=== PATIENT | male | born 1985 | race Caucasian/White ===

== ENCOUNTER 2020-10-28 11:22 | Emergency (ER) | payer BC ==
[2020-10-28] MEDS ORDERED: MORPHINE SULFATE 2 MG INJ IV ONE (11:37)
[2020-10-28] MEDS ORDERED: Sodium Chloride 0.9% 1000 ML 1,000 ML IV STA (11:37)
[2020-10-28] MEDS ORDERED: BABY ASPIRIN 81 MG CHEW PO ONE (11:37)
[2020-10-28] MEDS ORDERED: BABY ASPIRIN 81 MG CHEW ONE (11:48)
[2020-10-28] MEDS ORDERED: MORPHINE SULFATE 2 MG INJ ONE (11:48)
[2020-10-28] MEDS ORDERED: Sodium Chloride 0.9% 1000 ML 1,000 ML ONE (11:49)
[2020-10-28 12:01] LABS: Absolute Neutrophil Ct (ANC) 2.94 (1.4-6.9); BASOPHIL % 0.7 % (0.0-0.4); Basophil (Absolute #) 0.04 (0-0.4); Eosinophil % 1.3 % (0.00-5.0); Eosinophil (Absolute #) 0.07 (0-0.5); Hematocrit 43.1 % (42-50); Hemoglobin 14.7 gm/dl (12.5-18.0); Lymphocyte (Absolute #) 2.02 (1.0-4.6); Lymphocytes % 37.8 % (24.0-44.0); Mean Cell Volume 89.4 fl (78-100); Mean Corpuscular Hemoglobin 30.5 pg (26-32); Mean Corpuscular Hgb Concent. 34.1 g/dl (32-36); Mean Platelet Volume 10.1 fl (7.5-11.0); Monocyte (Absolute #) 0.28 (0.0-1.3); Monocytes % 5.2 % (0.0-12.0); Platelet Count 230 K/mm3 (150-450); Red Blood Count 4.82 M/mm3 (4.1-5.6); Red Cell Distribution Width 12.1 % (11.5-14.0); White Blood Count 5.4 K/mm3 (4.0-10.5)
--- NOTE | 2020-10-28 12:22 | XRAY ---
Indication: Left arm pain. High blood pressure. Comparison: None Portable apical lordotic chest demonstrates normal heart, lungs, and bony thorax.
[2020-10-28 12:26] LABS: ALBUMIN 4.2 g/dL (3.5-5.0); ALKALINE PHOSPHATASE 47 U/L (38-126); AMYLASE 65 U/L (30-110); ANION GAP 12.4 MEQ/L (5-15); BLOOD UREA NITROGEN 15 mg/dL (9-20); CHLORIDE 101 mmol/L (98-107); CK-Creatinine Phosphokinase 81 U/L (55-170); Calcium 9.6 mg/dL (8.4-10.2); Carbon Dioxide 29 mmol/L (22-30); Creatinine 1 1.07 mg/dL (0.66-1.25); EST GLOMERULAR FILTRATION RATE > 60.0 ML/MIN; Glucose 96 mg/dL (74-106); LIPASE 234 U/L (23-300); NT PRO BNP 37.5 pg/mL (0-450); Potassium 4.6 mmol/L (3.5-5.1); SGOT/AST 25 U/L (17-59); SGPT/ALT 20 U/L (0-50); SODIUM 138 mmol/L (137-145); Total Protein 6.9 g/dL (6.3-8.2)
[2020-10-28 12:33] LABS: INR 0.92 (0.8-3.0); PROTIME 10.8 SECONDS (9.4-12.5)
[2020-10-28 12:41] LABS: D-DIMER QUANTITATIVE < 215 ng/mL (215-500)
[2020-10-28 13:02] LABS: Erythrocyte Sedimentation Rate 6 mm/hr (0-15)
--- NOTE | 2020-10-28 14:44 | ERPHSYRPT ---
- History of Present Illness Time Seen by Provider: 10/28/20 11:35 Historian: patient Exam Limitations: no limitations Patient Subjective Stated Complaint: pain/numbness in the left arm, back shoulder, and states that it feels like it is moving to his left chest Triage Nursing Assessment: Pt was brought to the ER by a work colleague, hypertensive, rates pain as 6-7/10, pulses normal, sinus rhythm, dizziness, pain began last night, denies N&V, denies being diaphoretic, doesn't appear to be in any distress Physician History: Patient is a 34-year-old male who presents with a complaint of left-sided chest pain. It started last p.m. with some numbness and pain in the left arm starting from the posterior aspect of the left shoulder down to the fingers. The back pain then radiates to the chest and noticed started 1 hour prior to arrival. 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 Did note that he has some dizziness and his initial blood pressure was 150/110. At bedrest here in the ER it eventually moved to 148/99. Patient has no cardiac risk factors. Timing/Duration: yesterday Activities at Onset: none Quality: pressure Location: shoulder, back Chest Pain Radiation: back Severity of Pain-Max: severe Severity of Pain-Current: moderate Modifying Factors: Improves With: nothing Associated Symptoms: denies symptoms Prior Chest Pain/Cardiac Workup: no prior chest pain, no prior cardiac workup Nitro Today/Relief: no nitro taken today Aspirin Treatment Today: 325 mg x 1, provided by ED Allergies/Adverse Reactions: No Known Drug Allergies Allergy (Verified 10/28/20 11:32) Travel Risk - International Travel Have you traveled outside of the country in past 3 weeks: No - Coronavirus Screening Are you exhibiting any of the following symptoms?: No Close contact with a COVID-19 positive Pt in past 14-21 Days: No - Vaccine Status Have you recieved a Covid-19 vaccination: No - Review of Systems Constitutional: No Fever, No Chills Eyes: No Symptoms Ears, Nose, & Throat: No Symptoms Respiratory: No Cough, No Dyspnea Cardiac: Chest Pain, No Edema, No Syncope Abdominal/Gastrointestinal: No Abdominal Pain, No Nausea, No Vomiting, No Diarrhea Genitourinary Symptoms: No Dysuria Musculoskeletal: Joint Pain, No Back Pain, No Neck Pain Skin: No Rash Neurological: No Dizziness, No Focal Weakness, No Sensory Changes Psychological: No Symptoms Endocrine: No Symptoms All Other Systems: Reviewed and Negative - Past Medical History Pertinent Past Medical History: No - Past Surgical History Past Surgical History: Yes Genitourinary: Kidney Surgery - Social History Smoking Status: Never smoker Exposure to second hand smoke: Yes Drug Use: none Patient Lives Alone: No - Nursing Vital Signs Nursing Vital Signs: Initial Vital Signs Temperature 96.8 F 10/28/20 11:23 Pulse Rate 92 H 10/28/20 11:23 Respiratory Rate 23 10/28/20 11:23 Blood Pressure 170/103 10/28/20 11:23 O2 Sat by Pulse Oximetry 99 10/28/20 11:23 Pain Scale Pain Intensity 5 - Physical Exam General Appearance: mild distress, alert Eye Exam: PERRL/EOMI, eyes nml inspection Ears, Nose, Throat Exam: normal ENT inspection, moist mucous membranes Neck Exam: normal inspection, non-tender, supple, full range of motion Respiratory Exam: normal breath sounds, lungs clear, No respiratory distress Cardiovascular Exam: regular rate/rhythm, normal heart sounds Gastrointestinal/Abdomen Exam: soft, No tenderness, No mass Back Exam: normal inspection, No CVA tenderness, No vertebral tenderness Extremity Exam: normal inspection, normal range of motion Neurologic Exam: alert, oriented x 3, cooperative, normal mood/affect, sensation nml, No motor deficits Skin Exam: normal color, warm, dry SpO2: 99 - Course Nursing assessment & vital signs reviewed: Yes EKG Interpreted by Me: RATE (81), NORMAL AXIS, NORMAL INTERVALS, NORMAL QRS, NORMAL ST-T - Radiology Exams Chest X-ray Interpretation: Negative Ordered Tests: Active Orders 24 hr Category Date Time Status EKG-ER Only STAT Care 10/28/20 11:37 Active IV Insertion STAT Care 10/28/20 11:37 Active CHEST 1 VIEW (PORTABLE) Stat Exams 10/28/20 11:39 Completed AMYLASE Stat Lab 10/28/20 11:55 Completed CBC W DIFF Stat Lab 10/28/20 11:55 Completed CK-Creatinine Phosphokinase Stat Lab 10/28/20 11:55 Completed CMP Stat Lab 10/28/20 11:55 Completed D-DIMER QUANTITATIVE Stat Lab 10/28/20 11:55 Completed Erythrocyte Sedimentation Rate Stat Lab 10/28/20 11:55 Completed LIPASE Stat Lab 10/28/20 11:55 Completed Lactic Acid Stat Lab 10/28/20 11:37 Completed NT PRO BNP Stat Lab 10/28/20 11:55 Completed PROTIME WITH INR Stat Lab 10/28/20 11:55 Completed TROPONIN Q3H Lab 10/28/20 11:55 Completed TROPONIN Q3H Lab 10/28/20 14:05 Completed TROPONIN Q3H Lab 10/28/20 17:45 Ordered TROPONIN Q3H Lab 10/28/20 20:45 Ordered TROPONIN Q3H Lab 10/28/20 23:45 Ordered UA W/RFX UR CULTURE Stat Lab 10/28/20 14:12 Ordered Medication Summary Discontinued Medications Generic Name Dose Route Start Last Admin Trade Name Freq PRN Reason Stop Dose Admin Aspirin 324 mg 10/28/20 11:37 10/28/20 11:51 Baby Aspirin 81 Mg Chew PO 10/28/20 11:38 324 mg STAT ONE Administration Aspirin Confirm 10/28/20 11:48 Baby Aspirin 81 Mg Chew Administered 10/28/20 11:49 Dose 324 mg .ROUTE .STK-MED ONE Sodium Chloride 1,000 mls @ 999 mls/hr 10/28/20 11:37 10/28/20 13:05 Sodium Chloride 0.9% 1000 Ml IV 10/28/20 12:37 Infused .Q1H1M STA Infusion Sodium Chloride Confirm 10/28/20 11:49 Sodium Chloride 0.9% 1000 Ml Administered 10/28/20 11:50 Dose 1,000 mls @ ud .ROUTE .STK-MED ONE Morphine Sulfate 2 mg 10/28/20 11:37 10/28/20 11:52 Morphine Sulfate 2 Mg Inj IV 10/28/20 11:38 2 mg STAT ONE Administration Morphine Sulfate Confirm 10/28/20 11:48 Morphine Sulfate 2 Mg Inj Administered 10/28/20 11:49 Dose 2 mg .ROUTE .STK-MED ONE Lab/Rad Data: Laboratory Result Diagrams 10/28/20 11:55 10/28/20 11:55 Laboratory Results 10/28/20 10/28/20 10/28/20 Range/Units 14:05 11:55 11:55 WBC (4.0-10.5) K/mm3 RBC (4.1-5.6) M/mm3 Hgb (12.5-18.0) gm/dl Hct (42-50) % MCV (78-100) fl MCH (26-32) pg MCHC (32-36) g/dl RDW (11.5-14.0) % Plt Count (150-450) K/mm3 MPV (7.5-11.0) fl Gran % (36.0-66.0) % Eos # (Auto) (0-0.5) Absolute Lymphs (auto) (1.0-4.6) Absolute Monos (auto) (0.0-1.3) Lymphocytes % (24.0-44.0) % Monocytes % (0.0-12.0) % Eosinophils % (0.00-5.0) % Basophils % (0.0-0.4) % Absolute Granulocytes (1.4-6.9) Basophils # (0-0.4) ESR (0-15) mm/hr PT 10.8 (9.4-12.5) SECONDS INR 0.92 (0.8-3.0) D-Dimer < 215 L (215-500) ng/mL Sodium (137-145) mmol/L Potassium (3.5-5.1) mmol/L Chloride (98-107) mmol/L Carbon Dioxide (22-30) mmol/L Anion Gap (5-15) MEQ/L BUN (9-20) mg/dL Creatinine (0.66-1.25) mg/dL Estimated GFR ML/MIN Glucose (74-106) mg/dL Lactic Acid (0.4-2.0) Calcium (8.4-10.2) mg/dL Total Bilirubin (0.2-1.3) mg/dL AST (17-59) U/L ALT (0-50) U/L Alkaline Phosphatase (38-126) U/L Creatine Kinase (55-170) U/L Troponin I < 0.012 < 0.012 (0.000-0.034) ng/mL NT-Pro-B Natriuret Pep (0-450) pg/mL Serum Total Protein (6.3-8.2) g/dL Albumin (3.5-5.0) g/dL Amylase (30-110) U/L Lipase (23-300) U/L 10/28/20 10/28/20 10/28/20 Range/Units 11:55 11:55 11:37 WBC 5.4 (4.0-10.5) K/mm3 RBC 4.82 (4.1-5.6) M/mm3 Hgb 14.7 (12.5-18.0) gm/dl Hct 43.1 (42-50) % MCV 89.4 (78-100) fl MCH 30.5 (26-32) pg MCHC 34.1 (32-36) g/dl RDW 12.1 (11.5-14.0) % Plt Count 230 (150-450) K/mm3 MPV 10.1 (7.5-11.0) fl Gran % 55.0 (36.0-66.0) % Eos # (Auto) 0.07 (0-0.5) Absolute Lymphs (auto) 2.02 (1.0-4.6) Absolute Monos (auto) 0.28 (0.0-1.3) Lymphocytes % 37.8 (24.0-44.0) % Monocytes % 5.2 (0.0-12.0) % Eosinophils % 1.3 (0.00-5.0) % Basophils % 0.7 (0.0-0.4) % Absolute Granulocytes 2.94 (1.4-6.9) Basophils # 0.04 (0-0.4) ESR 6 (0-15) mm/hr PT (9.4-12.5) SECONDS INR (0.8-3.0) D-Dimer (215-500) ng/mL Sodium 138 (137-145) mmol/L Potassium 4.6 (3.5-5.1) mmol/L Chloride 101 (98-107) mmol/L Carbon Dioxide 29 (22-30) mmol/L Anion Gap 12.4 (5-15) MEQ/L BUN 15 (9-20) mg/dL Creatinine 1.07 (0.66-1.25) mg/dL Estimated GFR > 60.0 ML/MIN Glucose 96 (74-106) mg/dL Lactic Acid 1.9 (0.4-2.0) Calcium 9.6 (8.4-10.2) mg/dL Total Bilirubin 1.10 (0.2-1.3) mg/dL AST 25 (17-59) U/L ALT 20 (0-50) U/L Alkaline Phosphatase 47 (38-126) U/L Creatine Kinase 81 (55-170) U/L Troponin I (0.000-0.034) ng/mL NT-Pro-B Natriuret Pep 37.5 (0-450) pg/mL Serum Total Protein 6.9 (6.3-8.2) g/dL Albumin 4.2 (3.5-5.0) g/dL Amylase 65 (30-110) U/L Lipase 234 (23-300) U/L - Progress Progress: improved Air Movement: good Blood Culture(s) Obtained: No Antibiotics given: No - Departure Departure Disposition: Home Clinical Impression: Subscapular bursitis Condition: Stable Critical Care Time: No Referrals: DOCTOR,NO FAMILY [Primary Care Provider] - Instructions: Shoulder Bursitis (DC) Prescriptions: Methylprednisolone Packet [Medrol Dosepack] 4 mg PO UD #1 packet Diclofenac Sodium 50 mg [Voltaren 50 mg] 50 mg PO TID 7 Days #21 tablet.ec
[2020-10-28 15:41] VITALS: BP 135/98; PULSE 74; O2SAT 98
== END 2020-10-28 15:40 | disposition home or self-care (01) ==
LOC: ED 11:22
DX: M17.9 Osteoarthritis of knee, unspecified (principal)
CPT/HCPCS: 36000; 36415; 71045; 80053; 82150; 82550; 83605; 83690; 83880; 84484; 85025; 85379; 85610; 85652; 93005; 96360; 96374; 99284; J2270; A9270-GY

== ENCOUNTER 2022-06-29 10:15 | Emergency (ER) | payer OTHER, BC ==
--- NOTE | 2022-06-29 10:19 | ERPHSYRPT ---
- History of Present Illness Time Seen by Provider: 06/29/22 10:19 Source: patient Exam Limitations: no limitations Physician History: This is a 36-year-old white male patient has a history of hypertension and takes hydrochlorothiazide and lisinopril and presents with 2-day history of intermittent dizziness and pain behind his right eye. Patient did not suffer any new trauma. He has not had any flulike symptoms. He has no visual changes. He has not had any fevers. Patient denies chest pain. He denies shortness of breath. He has no abdominal pain. He states he is never had anything like this in the past. He is not on any new medications in the denies illicit drug use Timing/Duration: day(s) (2) Severity: mild Character of Deficits: none Deficits: no difficulties Baseline/Normal Cognition: alert oriented x 3 Current Cognition: alert oriented x 3 Baseline Gait: walks w/o assistance Associated Symptoms: denies symptoms, No loss of consciousness, No vision changes, No chest pain Allergies/Adverse Reactions: No Known Drug Allergies Allergy (Verified 06/29/22 10:41) Home Medications: Lisinopril/Hydrochlorothiazide [Lisinopril-Hctz 10-12.5 mg Tab] 1 each PO DAILY 06/29/22 [History] Travel Risk - International Travel Have you traveled outside of the country in past 3 weeks: No - Coronavirus Screening Are you exhibiting any of the following symptoms?: No Close contact with a COVID-19 positive Pt in past 14-21 Days: No - Vaccine Status Have you recieved a Covid-19 vaccination: No - Review of Systems Constitutional: No Symptoms Eyes: Eye Pain (Pain behind the right eye) Ears, Nose, & Throat: No Symptoms Respiratory: No Symptoms Cardiac: No Symptoms Abdominal/Gastrointestinal: No Symptoms Genitourinary Symptoms: No Symptoms Musculoskeletal: No Symptoms Neurological: Dizziness, Headache Psychological: No Symptoms Endocrine: No Symptoms Hematologic/Lymphatic: No Symptoms Immunological/Allergic: No Symptoms All Other Systems: Reviewed and Negative - Past Medical History Pertinent Past Medical History: No - Past Surgical History Past Surgical History: Yes Genitourinary: Kidney Surgery - Social History Smoking Status: Never smoker Exposure to second hand smoke: Yes Drug Use: none Patient Lives Alone: No - Nursing Vital Signs Nursing Vital Signs: Initial Vital Signs Temperature 96.1 F 06/29/22 10:31 Pulse Rate 77 03/29/23 10:31 Blood Pressure 139/86 06/29/22 10:31 O2 Sat by Pulse Oximetry 98 06/29/22 10:31 Pain Scale Pain Intensity 8 - [place] Coma Scale Best Eye Response ([place]): (4) open spontaneously Best Verbal Response ([place]): (5) oriented Best Motor Response ([place]): (6) obeys commands Alexandre Total: 15 - Physical Exam General Appearance: no apparent distress, alert, anxiety Eye Exam: bilateral eye: normal inspection, PERRL, EOMI Ears, Nose, Throat Exam: normal ENT inspection, moist mucous membranes Neck Exam: normal inspection, non-tender, supple, full range of motion Respiratory: normal breath sounds, lungs clear, airway intact, No chest tenderness, No respiratory distress Cardiovascular: regular rate/rhythm, normal heart sounds, normal peripheral pulses Gastrointestinal: soft, normal bowel sounds, No tenderness Rectal Exam: not done Back Exam: normal inspection, normal range of motion, No CVA tenderness, No ve rtebral tenderness Extremity Exam: normal inspection, normal range of motion, pelvis stable Mental Status: alert, oriented x 3, 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 Exam: normal hearing, normal speech, PERRL, tongue midline Coordination/Gait: normal gait, normal cerebellar function Motor/Sensory: no motor deficit, no sensory deficit, no pronator drift Skin Exam: normal color, warm, dry SpO2 Interpretation: normal O2 Delivery: Room Air - Course Nursing assessment & vital signs reviewed: Yes EKG Interpreted by Me: RATE (81), Sinus Rhythm, NORMAL AXIS, NORMAL INTERVALS, NORMAL QRS, Other (A few PVCs without evidence of any acute ischemic changes) Ordered Tests: Active Orders 24 hr Category Date Time Status Hand Candy Dipper STAT Care 06/29/22 10:45 Active EKG-ER Only STAT Care 06/29/22 10:45 Active IV Insertion STAT Care 06/29/22 10:45 Active HEAD WITHOUT CONTRAST [CT] Stat Exams 06/29/22 10:54 Completed CBC W DIFF Stat Lab 06/29/22 11:10 Completed CMP Stat Lab 06/29/22 11:10 Completed ETHYL ALCOHOL Stat Lab 06/29/22 11:10 Completed MAGNESIUM Stat Lab 06/29/22 11:10 Completed TROPONIN Q4H Lab 06/29/22 11:10 Completed TROPONIN Q4H Lab 03/29/23 14:45 Ordered TROPONIN Q4H Lab 06/29/22 18:45 Ordered UA W/RFX UR CULTURE Stat Lab 06/29/22 12:31 Received Urine Triage Profile Stat Lab 06/29/22 12:31 Received Lab/Rad Data: Laboratory Result Diagrams 06/29/22 11:10 06/29/22 11:10 Laboratory Results 06/29/22 06/29/22 Range/Units 11:10 11:10 WBC 5.8 (4.0-10.5) x10^3/uL RBC 5.31 (4.1-5.6) x10^6/uL Hgb 15.7 (12.5-18.0) g/dL Hct 46.1 (42-50) % MCV 86.8 (78-100) fL MCH 29.6 (26-32) pg MCHC 34.1 (32-36) g/dL RDW 11.9 (11.5-14.0) % Plt Count 314 (150-450) x10^3/uL MPV 9.5 (7.5-11.0) fL Gran % 54.1 (36.0-66.0) % Immature Gran % (Auto) 0.3 (0.00-0.4) % Nucleat RBC Rel Count 0.0 (0.00-0.1) % Eos # (Auto) 0.07 (0-0.5) x10^3/uL Immature Gran # (Auto) 0.02 (0.00-0.03) x10^3u/L Absolute Lymphs (auto) 2.14 (1.0-4.6) x10^3/uL Absolute Monos (auto) 0.39 (0.0-1.3) x10^3/uL Absolute Nucleated RBC 0.00 (0.00-0.01) x10^3u/L Lymphocytes % 36.8 (24.0-44.0) % Monocytes % 6.7 (0.0-12.0) % Eosinophils % 1.2 (0.00-5.0) % Basophils % 0.9 (0.0-0.4) % Absolute Granulocytes 3.15 (1.4-6.9) x10^3/uL Basophils # 0.05 (0-0.4) x10^3/uL Sodium 138 (137-145) mmol/L Potassium 4.3 (3.5-5.1) mmol/L Chloride 99 (98-107) mmol/L Carbon Dioxide 30 (22-30) mmol/L Anion Gap 13.8 (5-15) MEQ/L BUN 12 (9-20) mg/dL Creatinine 0.79 (0.66-1.25) mg/dL Estimated GFR > 60.0 ML/MIN Glucose 98 (74-106) mg/dL Calcium 9.4 (8.4-10.2) mg/dL Magnesium 2.0 (1.6-2.3) mg/dL Total Bilirubin 1.20 (0.2-1.3) mg/dL AST 32 (17-59) U/L ALT 26 (0-50) U/L Alkaline Phosphatase 51 (38-126) U/L Troponin I < 0.012 (0.000-0.034) ng/mL Serum Total Protein 8.1 (6.3-8.2) g/dL Albumin 4.7 (3.5-5.0) g/dL Ethyl Alcohol < 10 (0-10) mg/dL - Progress Progress: unchanged Progress Note: 06/29/22 12:15 Normal CAT scan of the head without contrast. 06/29/22 13:56 This patient's medical issue is 1 of moderate complexity. The level of complexity and the work-up performed was based on review of the patient's past medical history, review of the patient's medication list, review of the patient's medical allergy list and history of present illness as well as physical findings on examination. The work-up included obtaining a twelve-lead EKG, obtaining urinalysis, CBC, CMP, D-dimer, troponin level, and CT scan of the head. The work-up is negative thus far. The urinalysis is pending. There is been a delay in the urinalysis reading. This was discussed with the patient. He desires to leave before the results of this study. We will not make him leave AGAINST MEDICAL ADVICE. If there is a significant finding on his urinalysis that needs to have intervention we will let him know. He has been waiting a significant amount of time. He has no chest pain. He is not short of breath. He is to follow-up with his primary care physician for further evaluation and management. I will send a prescription for of Antivert to his pharmacy in case he needs it Counseled pt/family regarding: lab results, diagnosis, need for follow-up, rad results Medical Desision Making - Discussion of managment Reviewed:: Test results Agreed on:: Treatment plan, need for follow-up - Diagnostic Testing Diagnostic test were ordered, analyzed, and reviewed by me: Yes Radiological Interpretation: Reviewed by me - Risk of complications Low Risk: Low risk of morbidity from additional dx testing or treatment - Departure Departure Disposition: Home Clinical Impression: Dizziness Condition: Stable Critical Care Time: No Referrals: DOCTOR,NO FAMILY [NON-STAFF PHY W/O PRIVILEGES] - Follow up/PCP as directed Additional Instructions: Take your medication as prescribed. Follow-up with your primary care provider for further evaluation management. Return to the emergency department if symptoms worsen Prescriptions: Meclizine HCl 25 mg [Antivert 25 mg] 25 mg PO Q8H PRN #10 tablet PRN Reason: Dizziness
[2022-06-29 10:42] VITALS: O2SAT 98
--- NOTE | 2022-06-29 11:10 | XRAY ---
Indication: Frontal headache and dizziness. Multiple contiguous axial images obtained through the head without contrast. Comparison: None Normal appearing brain parenchyma, ventricles, and bony calvarium. Visualized paranasal sinuses and mastoid air cells are clear. Impression: Normal CT head without contrast exam.
[2022-06-29 11:20] LABS: Absolute Neutrophil Ct (ANC) 3.15 x10^3/uL (1.4-6.9); BASOPHIL % 0.9 % (0.0-0.4); Basophil (Absolute #) 0.05 x10^3/uL (0-0.4); Eosinophil % 1.2 % (0.00-5.0); Eosinophil (Absolute #) 0.07 x10^3/uL (0-0.5); Hematocrit 46.1 % (42-50); Hemoglobin 15.7 g/dL (12.5-18.0); IMMATURE GRAN # 0.02 x10^3u/L (0.00-0.03); IMMATURE GRAN % 0.3 % (0.00-0.4); Lymphocyte (Absolute #) 2.14 x10^3/uL (1.0-4.6); Lymphocytes % 36.8 % (24.0-44.0); Mean Cell Volume 86.8 fL (78-100); Mean Corpuscular Hemoglobin 29.6 pg (26-32); Mean Corpuscular Hgb Concent. 34.1 g/dL (32-36); Mean Platelet Volume 9.5 fL (7.5-11.0); Monocyte (Absolute #) 0.39 x10^3/uL (0.0-1.3); Monocytes % 6.7 % (0.0-12.0); Neutrophil % 54.1 % (36.0-66.0); Platelet Count 314 x10^3/uL (150-450); Red Blood Count 5.31 x10^6/uL (4.1-5.6); Red Cell Distribution Width 11.9 % (11.5-14.0); White Blood Count 5.8 x10^3/uL (4.0-10.5)
[2022-06-29 11:41] LABS: ALBUMIN 4.7 g/dL (3.5-5.0); ALKALINE PHOSPHATASE 51 U/L (38-126); ANION GAP 13.8 MEQ/L (5-15); BLOOD UREA NITROGEN 12 mg/dL (9-20); CHLORIDE 99 mmol/L (98-107); Calcium 9.4 mg/dL (8.4-10.2); Carbon Dioxide 30 mmol/L (22-30); Creatinine 1 0.79 mg/dL (0.66-1.25); EST GLOMERULAR FILTRATION RATE > 60.0 ML/MIN; ETHYL ALCOHOL < 10 mg/dL (0-10); Glucose 98 mg/dL (74-106); Potassium 4.3 mmol/L (3.5-5.1); SGOT/AST 32 U/L (17-59); SGPT/ALT 26 U/L (0-50); SODIUM 138 mmol/L (137-145); TROPONIN < 0.012 ng/mL (0.000-0.034); Total Protein 8.1 g/dL (6.3-8.2)
[2022-06-29 13:50] VITALS: BP 127/82; PULSE 80
[2022-06-29 14:00] LABS: Appearance Clear (Clear); Bacteria None Seen /HPF (None Seen); Bilirubin Negative (Negative); Blood Negative (Negative); Epithelial Cells None Seen /HPF (None Seen); Glucose, Urine Negative (Negative); Hyaline Casts NONE SEEN /LPF (0-2); Ketones Negative (Negative); Leukocyte Esterase Negative (Negative); Nitrite Negative (Negative); Protein,Urine Dip Negative (Negative); RBC 0-2 /HPF (0-5); Urobilinogen 0.2 mg/dL (0.2); WBC 0-2 /HPF (0-5)
[2022-06-29 14:01] LABS: ADD URINE CULTURE? NO (NO)
[2022-06-29 14:16] LABS: Amphetamine,Urine NEGATIVE (NEGATIVE); Barbiturate,Urine NEGATIVE (NEGATIVE); Benzodiazepine,Urine NEGATIVE (NEGATIVE); Cocaine,Urine NEGATIVE (NEGATIVE); Methadone,Urine NEGATIVE (NEGATIVE); Opiate,Urine NEGATIVE (NEGATIVE); PCP,Urine NEGATIVE (NEGATIVE); THC,Urine NEGATIVE (NEGATIVE)
== END 2022-06-29 14:03 | disposition home or self-care (01) ==
LOC: ED 10:15
DX: R42 Dizziness and giddiness (principal); R51.9 Headache, unspecified; I10 Essential (primary) hypertension; Z28.310 Unvaccinated for COVID-19
CPT/HCPCS: 36000; 36415; 70450; 80053; 80307; 81001; 82077; 83735; 84484; 85025; 93005; 93041; 99284

== ENCOUNTER 2022-09-11 19:46 | Emergency (ER) | payer OTHER, BC ==
--- NOTE | 2022-09-11 20:11 | ERPHSYRPT ---
- History of Present Illness Time Seen by Provider: 09/11/22 20:11 Historian: patient Exam Limitations: no limitations Physician History: This is a 36-year-old white male patient has a history of gastroesophageal reflux disease and hypertension. He typically receives his medical care at [facility]. Patient is a and was out doing his weekend obligation. Patient states that 2 days ago he started having pain in his left testicle. Since that time it had radiated up into his left flank. He went to drill today and the pain in his left flank and left testicle worsened. It is sharp and throbbing. He also feels as though the left testicle is swollen. He has never had anything like this before. He denies chest pain. He denies shortness of breath. He is nauseated but there is been no vomiting. He has no flulike symptoms. Timing/Duration: day(s) (2) Quality: aching, sharpness Abdominal Pain Onset Location: flank Pain Radiation: groin, other (Left testicle) Severity of Pain-Max: moderate Severity of Pain-Current: moderate Modifying Factors: Improves With: nothing Associated Symptoms: testicular pain (Left), other (Left flank) Previous symptoms: no prior history Allergies/Adverse Reactions: No Known Drug Allergies Allergy (Verified 09/11/22 20:03) Home Medications: Lisinopril/Hydrochlorothiazide [Lisinopril-Hctz 10-12.5 mg Tab] 1 each PO DAILY 06/29/22 [History] Omeprazole 20 mg PO DAILY 09/11/22 [History] Hx Influenza Vaccination/Date Given: Yes Hx Pneumococcal Vaccination/Date Given: No Travel Risk - International Travel Have you traveled outside of the country in past 3 weeks: No - Coronavirus Screening Are you exhibiting any of the following symptoms?: No Close contact with a COVID-19 positive Pt in past 14-21 Days: No - Vaccine Status Have you recieved a Covid-19 vaccination: No Shackler: Moderna - Vaccination Dates Date of 2cond Vaccination (if applicable): 2020 - Review of Systems Constitutional: No Symptoms Eyes: No Symptoms Ears, Nose, & Throat: No Symptoms Respiratory: No Symptoms Cardiac: No Symptoms Abdominal/Gastrointestinal: Abdominal Pain (Left suprapubic/left pelvis pain) Genitourinary Symptoms: Flank Pain (Left flank), Testicle Pain (Left testicular) Musculoskeletal: No Symptoms Skin: No Symptoms Neurological: No Symptoms Psychological: No Symptoms Endocrine: No Symptoms Hematologic/Lymphatic: No Symptoms Immunological/Allergic: No Symptoms All Other Systems: Reviewed and Negative - Past Medical History Pertinent Past Medical History: Yes Neurological History: No Pertinent History ENT History: No Pertinent History Cardiac History: Hypertension Respiratory History: No Pertinent History Endocrine Medical History: No Pertinent History Musculoskeletal History: No Pertinent History GI Medical History: GERD History: No Pertinent History Psycho-Social History: No Pertinent History Male Reproductive Disorders: No Pertinent History - Past Surgical History Past Surgical History: Yes Cardiac: No Pertinent History Respiratory: No Pertinent History Gastrointestinal: No Pertinent History, Hernia Repair Genitourinary: Kidney Surgery Musculoskeletal: No Pertinent History Male Surgical History: No Pertinent History - Social History Smoking Status: Never smoker Exposure to second hand smoke: Yes Drug Use: none Patient Lives Alone: No - Nursing Vital Signs Nursing Vital Signs: Initial Vital Signs Temperature 98.6 F 09/11/22 20:08 Pulse Rate 82 09/11/22 20:08 Respiratory Rate 18 09/11/22 20:08 Blood Pressure 139/97 09/11/22 20:08 O2 Sat by Pulse Oximetry 97 09/11/22 20:08 Pain Scale Pain Intensity 3 - Physical Exam General Appearance: mild distress, alert, anxiety Eye Exam: PERRL/EOMI, eyes nml inspection Ears, Nose, Throat Exam: normal ENT inspection, moist mucous membranes Neck Exam: normal inspection, non-tender, supple, full range of motion Respiratory Exam: normal breath sounds, lungs clear, airway intact, No chest tenderness, No respiratory distress Cardiovascular Exam: regular rate/rhythm, normal heart sounds, normal peripheral pulses Gastrointestinal/Abdomen Exam: soft, normal bowel sounds, tenderness (Left suprapubic region), guarding (Left suprapubic region to palpation), No rebound Male Genitalia Exam: testicular tenderness (With tender cord on the left side) Rectal Exam: not done Back Exam: normal inspection, normal range of motion, No CVA tenderness, No vertebral tenderness Extremity Exam: normal inspection, normal range of motion, pelvis stable Neurologic Exam: alert, oriented x 3, cooperative, 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 as tested, normal mood/affect, nml cerebellar function, nml station & gait, sensation nml Skin Exam: normal color, warm, dry Lymphatic Exam: No adenopathy SpO2 Interpretation: normal SpO2: 97 O2 Delivery: Room Air - Course Nursing assessment & vital signs reviewed: Yes Ordered Tests: Active Orders 24 hr Category Date Time Status Cold Application STAT Care 09/11/22 22:04 Active IV Insertion STAT Care 09/11/22 20:20 Active ABDOMEN AND PELVIS W/0 CONTRAS [CT] Stat Exams 09/11/22 20:20 Completed TESTICLE [US] Stat Exams 09/11/22 20:21 Taken AMYLASE Stat Lab 09/11/22 20:33 Completed CBC W DIFF Stat Lab 09/11/22 20:33 Completed CMP Stat Lab 09/11/22 20:33 Completed LIPASE Stat Lab 09/11/22 20:33 Completed UA W/RFX UR CULTURE Stat Lab 09/11/22 20:24 Completed Medication Summary Discontinued Medications Generic Name Dose Route Start Last Admin Trade Name Freq PRN Reason Stop Dose Admin Hydromorphone HCl 1 mg 09/11/22 20:20 09/11/22 20:29 Hydromorphone 1 Mg/1ml Inj IV 09/11/22 20:21 1 mg STAT ONE Administration Hydromorphone HCl Confirm 09/11/22 20:25 Hydromorphone 1 Mg/1ml Inj Administered 09/11/22 20:26 Dose 1 mg .ROUTE .STK-MED ONE Sodium Chloride 1,000 mls @ 999 mls/hr 09/11/22 20:20 09/11/22 21:29 Sodium Chloride 0.9% 1000 Ml IV 09/11/22 21:20 Infused .Q1H1M STA Infusion Sodium Chloride Confirm 09/11/22 20:25 Sodium Chloride 0.9% 1000 Ml Administered 09/11/22 20:26 Dose 1,000 mls @ ud .ROUTE .STK-MED ONE Ketorolac Tromethamine 30 mg 09/11/22 20:20 09/11/22 20:28 Ketorolac Tromethamine 30 Mg/Ml Inj IV 09/11/22 20:21 30 mg STAT ONE Administration Ketorolac Tromethamine Confirm 09/11/22 20:25 Ketorolac Tromethamine 30 Mg/Ml Inj Administered 09/11/22 20:26 Dose 30 mg .ROUTE .STK-MED ONE Levofloxacin 500 mg 09/11/22 21:46 09/11/22 21:58 Levofloxacin 500 Mg Tablet PO 09/11/22 21:47 500 mg STAT ONE Administration Levofloxacin Confirm 09/11/22 21:52 Levofloxacin 500 Mg Tablet Administered 09/11/22 21:53 Dose 500 mg .ROUTE .STK-MED ONE Ondansetron HCl 4 mg 09/11/22 20:20 09/11/22 20:28 Ondansetron Hcl 4 Mg/2 Ml Vial IV 09/11/22 20:21 4 mg STAT ONE Administration Ondansetron HCl Confirm 09/11/22 20:25 Ondansetron Hcl 4 Mg/2 Ml Vial Administered 09/11/22 20:26 Dose 4 mg .ROUTE .STK-MED ONE Oxycodone/Acetaminophen 2 tab 09/11/22 21:53 09/11/22 22:13 Oxycodone Hcl/Apap 5 Mg/325 Mg Tablet PO 09/11/22 21:54 2 tab SENT HOME W/ PATIENT STA Administration Oxycodone/Acetaminophen Confirm 09/11/22 22:12 Oxycodone Hcl/Apap 5 Mg/325 Mg Tablet Administered 09/11/22 22:13 Dose 2 tab .ROUTE .STK-MED ONE Lab/Rad Data: Laboratory Result Diagrams 09/11/22 20:33 09/11/22 20:33 Laboratory Results 09/11/22 09/11/22 09/11/22 Range/Units 20:33 20:33 20:24 WBC 13.0 H (4.0-10.5) x10^3/uL RBC 4.86 (4.1-5.6) x10^6/uL Hgb 14.0 (12.5-18.0) g/dL Hct 42.2 (42-50) % MCV 86.8 (78-100) fL MCH 28.8 (26-32) pg MCHC 33.2 (32-36) g/dL RDW 11.9 (11.5-14.0) % Plt Count 383 (150-450) x10^3/uL MPV 9.7 (7.5-11.0) fL Gran % 72.8 H (36.0-66.0) % Immature Gran % (Auto) 0.3 (0.00-0.4) % Nucleat RBC Rel Count 0.0 (0.00-0.1) % Eos # (Auto) 0.07 (0-0.5) x10^3/uL Immature Gran # (Auto) 0.04 H (0.00-0.03) x10^3u/L Absolute Lymphs (auto) 2.51 (1.0-4.6) x10^3/uL Absolute Monos (auto) 0.87 (0.0-1.3) x10^3/uL Absolute Nucleated RBC 0.00 (0.00-0.01) x10^3u/L Lymphocytes % 19.4 L (24.0-44.0) % Monocytes % 6.7 (0.0-12.0) % Eosinophils % 0.5 (0.00-5.0) % Basophils % 0.3 (0.0-0.4) % Absolute Granulocytes 9.43 H (1.4-6.9) x10^3/uL Basophils # 0.04 (0-0.4) x10^3/uL Sodium 138 (137-145) mmol/L Potassium 3.9 (3.5-5.1) mmol/L Chloride 101 (98-107) mmol/L Carbon Dioxide 25 (22-30) mmol/L Anion Gap 15.7 H (5-15) MEQ/L BUN 14 (9-20) mg/dL Creatinine 0.92 (0.66-1.25) mg/dL Estimated GFR > 60.0 ML/MIN Glucose 98 (74-106) mg/dL Calcium 9.2 (8.4-10.2) mg/dL Total Bilirubin 0.90 (0.2-1.3) mg/dL AST 27 (17-59) U/L ALT 21 (0-50) U/L Alkaline Phosphatase 48 (38-126) U/L Serum Total Protein 8.2 (6.3-8.2) g/dL Albumin 4.4 (3.5-5.0) g/dL Amylase 68 (30-110) U/L Lipase 238 (23-300) U/L Urine Color Yellow (Yellow) Urine Appearance Clear (Clear) Urine pH 6.0 (4.6-8.0) Ur Specific [place] 1.015 (1.005-1.030) Urine Protein Negative (Negative) Urine Glucose (UA) Negative (Negative) mg/dL Urine Ketones Negative (Negative) Urine Blood Negative (Negative) Urine Nitrite Negative (Negative) Urine Bilirubin Negative (Negative) Urine Urobilinogen 1.0 A (0.2) mg/dL Ur Leukocyte Esterase Negative (Negative) U Hyaline Cast (Auto) NONE SEEN (0-2) /LPF Urine Microscopic RBC 0-2 (0-5) /HPF Urine Microscopic WBC 0-2 (0-5) /HPF Ur Epithelial Cells None Seen (None Seen) /HPF Urine Bacteria None Seen (None Seen) /HPF Urine Culture Reflexed NO (NO) - Progress Progress: improved, pain not gone completely, re-examined Progress Note: 09/11/22 21:47 Ultrasound of the left testicle shows a left hydrocele, left varicocele and left testicular orchitis. There is no evidence of testicular torsion per production floater Rhiannon. This patient's medical issue is 1 of moderate complexity. The level of complexity and the work-up performed is based on review of the patient's past medical history, review of the patient's medication list, review of the patient's drug allergy list, history of present illness and physical findings on examination. The work-up in this patient includes a left testicular ultrasound, CT scan of the abdomen pelvis, urinalysis, CBC, CMP. I reviewed the results of the studies as well as reviewed the interpretation of the ultrasound left testicle by the production floater. The patient has left orchitis. We will provide the patient with Levaquin 500 mg orally today in the emergency department. We will also send a prescription for Cipro, naproxen and to take home Percocet 5/325 pain pills for both treatment of bacterial orchitis and pain control. Patient is to place an ice pack under the scrotum to elevate his scrotum to assist in pain relief. Patient should follow-up with his primary care provider and/or urologist for further evaluation management. 09/11/22 22:55 CT scan of the abdomen pelvis without contrast shows no radiopaque calculus seen along the urinary tract. There is no evidence of obstructive uropathy. 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 Counseled pt/family regarding: lab results, diagnosis, need for follow-up, rad results Medical Desision Making - Diagnostic Testing Diagnostic test were ordered, analyzed, and reviewed by me: Yes Radiological Interpretation: Reviewed by me, Teleradiologist Report - Risk of complications The pt has a mod risk of morbidity or mortality based on: Need for prescription drug management - Departure Departure Disposition: Home Clinical Impression: Orchitis of left testicle, Left hydrocele, Left varicocele Condition: Stable Critical Care Time: No Referrals: HOSPITAL,'S [Primary Care Provider] - Follow up/PCP as directed Additional Instructions: Place an ice pack under the scrotum to help elevate the scrotum and testicles to provide pain relief. Do this 3 times a day for the next 48 hours. Take your antibiotics and pain medicine as prescribed. Call your primary care provider on 09/12/2022 to make arrangements for follow-up appointment and referral to a urologist if indicated. Prescriptions: Ciprofloxacin [Cipro 500 MG] 500 mg PO BID #14 tablet Naproxen 500 mg [Naprosyn 500 MG] 500 mg PO BID #10 tablet
[2022-09-11] MEDS ORDERED: Hydromorphone 1 mg/ml Injection IV ONE (20:20)
[2022-09-11] MEDS ORDERED: TORAdol 30 mg Injection IV ONE (20:20)
[2022-09-11] MEDS ORDERED: Sodium Chloride 0.9% 1000 ML 1,000 ML IV STA (20:20)
[2022-09-11] MEDS ORDERED: Zofran 4 MG/2 ML VIAL IV ONE (20:20)
[2022-09-11] MEDS ORDERED: Sodium Chloride 0.9% 1000 ML 1,000 ML ONE (20:25)
[2022-09-11] MEDS ORDERED: Zofran 4 MG/2 ML VIAL ONE (20:25)
[2022-09-11] MEDS ORDERED: Hydromorphone 1 mg/ml Injection ONE (20:25)
[2022-09-11] MEDS ORDERED: TORAdol 30 mg Injection ONE (20:25)
[2022-09-11 20:36] LABS: Absolute Neutrophil Ct (ANC) 9.43 x10^3/uL (1.4-6.9); BASOPHIL % 0.3 % (0.0-0.4); Basophil (Absolute #) 0.04 x10^3/uL (0-0.4); Eosinophil % 0.5 % (0.00-5.0); Eosinophil (Absolute #) 0.07 x10^3/uL (0-0.5); Hematocrit 42.2 % (42-50); IMMATURE GRAN # 0.04 x10^3u/L (0.00-0.03); IMMATURE GRAN % 0.3 % (0.00-0.4); Lymphocyte (Absolute #) 2.51 x10^3/uL (1.0-4.6); Lymphocytes % 19.4 % (24.0-44.0); Mean Cell Volume 86.8 fL (78-100); Mean Corpuscular Hemoglobin 28.8 pg (26-32); Mean Corpuscular Hgb Concent. 33.2 g/dL (32-36); Mean Platelet Volume 9.7 fL (7.5-11.0); Monocyte (Absolute #) 0.87 x10^3/uL (0.0-1.3); Monocytes % 6.7 % (0.0-12.0); Neutrophil % 72.8 % (36.0-66.0); Platelet Count 383 x10^3/uL (150-450); Red Blood Count 4.86 x10^6/uL (4.1-5.6); Red Cell Distribution Width 11.9 % (11.5-14.0)
[2022-09-11 20:44] LABS: Appearance Clear (Clear); Bacteria None Seen /HPF (None Seen); Bilirubin Negative (Negative); Blood Negative (Negative); Epithelial Cells None Seen /HPF (None Seen); Glucose, Urine Negative (Negative); Hyaline Casts NONE SEEN /LPF (0-2); Ketones Negative (Negative); Leukocyte Esterase Negative (Negative); Nitrite Negative (Negative); Protein,Urine Dip Negative (Negative); RBC 0-2 /HPF (0-5); Specific Gravity 1.015 (1.005-1.030); WBC 0-2 /HPF (0-5)
[2022-09-11 20:46] LABS: ADD URINE CULTURE? NO (NO)
[2022-09-11 20:52] LABS: ALBUMIN 4.4 g/dL (3.5-5.0); ALKALINE PHOSPHATASE 48 U/L (38-126); AMYLASE 68 U/L (30-110); ANION GAP 15.7 MEQ/L (5-15); BLOOD UREA NITROGEN 14 mg/dL (9-20); CHLORIDE 101 mmol/L (98-107); Calcium 9.2 mg/dL (8.4-10.2); Carbon Dioxide 25 mmol/L (22-30); Creatinine 1 0.92 mg/dL (0.66-1.25); EST GLOMERULAR FILTRATION RATE > 60.0 ML/MIN; Glucose 98 mg/dL (74-106); LIPASE 238 U/L (23-300); Potassium 3.9 mmol/L (3.5-5.1); SGOT/AST 27 U/L (17-59); SGPT/ALT 21 U/L (0-50); SODIUM 138 mmol/L (137-145); Total Protein 8.2 g/dL (6.3-8.2)
[2022-09-11] MEDS ORDERED: Levofloxacin 500 MG Tablet PO ONE (21:46)
[2022-09-11] MEDS ORDERED: Levofloxacin 500 MG Tablet ONE (21:52)
[2022-09-11] MEDS ORDERED: PERCOCET TABLET 5/325MG PO STA (21:53)
[2022-09-11 22:06] VITALS: BP 118/82
[2022-09-11] MEDS ORDERED: PERCOCET TABLET 5/325MG ONE (22:12)
--- NOTE | 2022-09-11 22:54 | XRAY ---
CLINICAL HISTORY:Left flank pain; left pelvic pain. COMPARISON:None. TECHNIQUES:CT of the abdomen and pelvis was performed with axial images as well as sagittal and coronal reconstruction images without intravenous contrast. DLP: 660.21 mGy*cm. CTDI: 21.87 mGy. FINDINGS: The liver is normal in size, and morphology and appears unremarkable with no intrahepatic or extrahepatic bile duct dilation. Unremarkable appearing gallbladder with no stones, wall thickening or pericholecystic inflammatory changes or fluid. Unremarkable appearing pancreas. No pancreatic mass or ductal dilatation is seen. Unremarkable appearing spleen. The adrenal glands are normal. The kidneys appear unremarkable with no calculi, masses or hydronephrosis. An isodense cyst is noted at the lower pole of left kidney measuring 1.8 cm. 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 The ureters are normal with no stones. Unremarkable abdominal aorta without specific evidence of aneurysm or dissection. IVC is normal. Small Bowel and colon are non-distended with no abnormality. No free air and no ascites. No free intraperitoneal air is seen. Bladder is unremarkable with no stones. The prostate is not enlarged. Few subcentimeter para-aortic lymph nodes are seen. Sections through the lung bases are clear. No osseous lesion was seen in the visualized skeleton. IMPRESSION: No radio-opaque calculus is seen along the urinary tract. No evidence of obstructive uropathy. 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 Electronically Signed by: Ham Giron MD. (09/11/2022 21:47:04 RUBBER PRESS OPERATOR)
[2022-09-11 22:56] VITALS: O2SAT 97
[2022-09-11 23:02] VITALS: PULSE 68
--- NOTE | 2022-09-12 08:46 | XRAY ---
Indication: Left testicle pain. Two-dimensional testicular sonogram performed. Comparison: None Both testicles negative for focal solid/cystic mass. Right testicle measures 5.2 x 2.6 x 3.4 cm and the left measures 4.8 x 2.6 x 3.7 cm. Right testicle demonstrates normal color perfusion. Left testicle demonstrates edema and marked hyperemic color Doppler flow favoring orchitis. Small left hydrocele presumed reactive. Also mild left varicocele. Left and right epididymis sonographically unremarkable. Impression: Sonographic features favoring left orchitis with reactive hydrocele and left varicocele. Negative sonogram right testicle. Comment: Preliminary report was given.
== END 2022-09-11 23:08 | disposition home or self-care (01) ==
LOC: ED 19:46
DX: N45.2 Orchitis (principal); N43.3 Hydrocele, unspecified; I86.1 Scrotal varices; N50.812 Left testicular pain; R10.9 Unspecified abdominal pain; R11.0 Nausea; I10 Essential (primary) hypertension; Z79.899 Other long term (current) drug therapy
CPT/HCPCS: 36000; 36415; 74176; 76870; 80053; 81001; 82150; 83690; 85025; 96374; 96375; 99284; J1170; J1885; J2405; A9270-GY

== ENCOUNTER 2023-05-28 06:58 | Emergency (ER) | payer OTHER, BC ==
[2023-05-28 07:23] VITALS: TEMP 97
[2023-05-28] MEDS ORDERED: TORAdol 30 mg Injection ONE (07:49)
[2023-05-28] MEDS: TORAdol 30 mg Injection IM ONE (07:50)
[2023-05-28 07:52] LABS: Group A Strep NOT DETECTED (NEGATIVE)
--- NOTE | 2023-05-28 08:02 | ERPHSYRPT ---
- History of Present Illness Time Seen by Provider: 05/28/23 07:25 Source: patient Exam Limitations: no limitations Patient Subjective Stated Complaint: C/O right ear pain since 05/19/23. States he went to the [facility] and they told him he has fluid on his ears and started him on an antibiotic. Patient now has a cough and sore throat as well that started a few days ago. Triage Nursing Assessment: Patient ambulated back to ER without difficulties. No SOB. Dry, non-productive cough present. Skin tone normal. ALEX BUITRAGO. Dr. Jimenez in room to examine ears and throat. Physician History: 37yo m presents for b/l ear fullness and pain as well as sore throat and cough that have been persistent for over 1wk. Pt states he was seen at urgent care and given a course of amoxicillin for ear infection, reports he still has 3d left of abx. Pt states he has not been getting any better since starting the abx. Pt denies any fevers, denies drainage from ears, does endorse some pain w/ swallowing but denies any difficulty breathing, cp, n/v/abdominal pain. Timing/Duration: gradual onset, persistent, weeks (1) Severity: moderate ENT Location: ear (R), ear (L), throat Prearrival Treatment: prescription meds (amoxicillin ) Modifying Factors: Improves With: nothing Associated Symptoms: ear pain (R), ear pain (L), cough, nasal congestion/drainage, sore throat, No fever, No chills, No dizziness, No ear drainage, No headache, No difficulty swallowing, No voice change Allergies/Adverse Reactions: No Known Drug Allergies Allergy (Verified 05/28/23 07:13) Home Medications: Lisinopril/Hydrochlorothiazide [Lisinopril-Hctz 10-12.5 mg Tab] 1 each PO DAILY 06/29/22 [History] Omeprazole 20 mg PO DAILY 09/11/22 [History] Amox Tr/Potass Clav. 875 mg [Augmentin 875-125 Tablet] 1 tab PO BID 05/28/23 [History] Hx Tetanus, Diphtheria Vaccination/Date Given: Yes Hx Influenza Vaccination/Date Given: Yes Hx Pneumococcal Vaccination/Date Given: No Immunizations Up to Date: Yes Travel Risk - International Travel Have you traveled outside of the country in past 3 weeks: No - Coronavirus Screening Are you exhibiting any of the following symptoms?: Yes Symptoms: Cough: New Onset, Headaches/Body Aches/Fatigue Close contact with a COVID-19 positive Pt in past 14-21 Days: No - Vaccine Status Have you recieved a Covid-19 vaccination: No Body Team Member: Moderna - Vaccination Dates Date of 2cond Vaccination (if applicable): 2020 - Review of Systems Constitutional: No Symptoms Eyes: No Symptoms Ears, Nose, & Throat: Ear Pain, Nose Congestion, Sinus Drainage, Throat Pain, P ainful Swallowing, No Ear Discharge, No Hearing Changes, No Tinnitus, No Throat Swelling Respiratory: Cough, No Dyspnea, No Wheezing Cardiac: No Symptoms Abdominal/Gastrointestinal: No Symptoms - Past Medical History Pertinent Past Medical History: Yes Neurological History: No Pertinent History ENT History: No Pertinent History Cardiac History: Hypertension Respiratory History: No Pertinent History Endocrine Medical History: No Pertinent History Musculoskeletal History: No Pertinent History GI Medical History: GERD, Hernia History: No Pertinent History Psycho-Social History: No Pertinent History Male Reproductive Disorders: No Pertinent History - Past Surgical History Past Surgical History: Yes Cardiac: No Pertinent History Respiratory: No Pertinent History Gastrointestinal: Hernia Repair Genitourinary: Kidney Surgery Musculoskeletal: No Pertinent History Male Surgical History: No Pertinent History - Social History Smoking Status: Never smoker Exposure to second hand smoke: Yes Drug Use: none Patient Lives Alone: No - Nursing Vital Signs Nursing Vital Signs: Initial Vital Signs Blood Pressure 145/99 05/28/23 07:14 O2 Sat by Pulse Oximetry 97 05/28/23 07:14 Pain Scale Pain Intensity 8 - Physical Exam General Appearance: no apparent distress, alert Eye Exam: bilateral eye: normal inspection, PERRL, EOMI Ear Exam: bilateral ear: auricle normal, canal normal, TM red, TM bulging Nasal Exam: normal inspection Throat Exam: normal, pharynx normal, moist mucus membranes, No pharynx swelling, No tongue swollen, No tonsillar exudate, No tonsillar swelling, No uvula swelling Neck Exam: normal inspection, non-tender, trachea midline, No lymphadenopathy (R), No lymphadenopathy (L) Cardiovascular/Respiratory Exam: normal breath sounds, regular rate/rhythm, heart sounds normal, no respiratory distress, No rhonchi, No wheezing Abdominal Exam: non-tender SpO2 Interpretation: normal SpO2: 97 O2 Delivery: Room Air Ordered Tests: Medication Summary Discontinued Medications Generic Name Dose Route Start Last Admin Trade Name Joe PRN Reason Stop Dose Admin Ketorolac Tromethamine 30 mg 05/28/23 07:38 05/28/23 07:50 Ketorolac Tromethamine 30 Mg/Ml Inj IM 05/28/23 07:39 30 mg STAT ONE Administration Ketorolac Tromethamine Confirm 05/28/23 07:49 Ketorolac Tromethamine 30 Mg/Ml Inj Administered 05/28/23 07:50 Dose 30 mg .ROUTE .STK-MED ONE Lab/Rad Data: Laboratory Results 05/28/23 Range/Units 07:20 Influenza Type A Ag NEGATIVE (NEGATIVE) Influenza Type B Ag NEGATIVE (NEGATIVE) RSV (PCR) NEGATIVE (NEGATIVE) SARS-CoV-2 (PCR) NEGATIVE (NEGATIVE) Group A Strep Antibody NOT DETECTED (NEGATIVE) - Progress Progress: pain not gone completely Progress Note: 05/28/23 08:05 given IM toradol 30mg 05/28/23 09:04 Pt reporting toradol did not improve pain, still complaining of right ear pain and throat pain no difficulties swallowing, does have some pain on swallowing, no voice changes, no horse voice, no fevers, vitally stable - very low suspicion for peritonsilar or retropharyngeal abscess, thus imaging deferred at this time instructed pt to use chlorheptic throat spray for discomfort, continue tylenol/ibuprofen as needed, instructed to avoid ibuprofen for the next 48h instructed to complete full course of augmentin prescribed at his urgent care visit will dc w/ 2 norco 5mg tablets for pain instructed to f/u w/ pcp this week - sees [place] doc Counseled pt/family regarding: lab results, diagnosis, need for follow-up Medical Desision Making - Diagnostic Testing Diagnostic test were ordered, analyzed, and reviewed by me: Yes - Risk of complications Minimal Risk: Minimal risk of morbidity - Departure Departure Disposition: Home Clinical Impression: Sore throat Bilateral otitis media Qualifiers: Otitis media type: unspecified Qualified Code(s): H66.93 - Otitis media, unspecified, bilateral Condition: Stable Critical Care Time: No Referrals: HOSPITAL,'S [Primary Care Provider] - Follow up/PCP as directed Additional Instructions: nstructed pt to use chlorheptic throat spray for discomfort, continue tylenol/ibuprofen as needed, instructed to avoid ibuprofen for the next 48h instructed to complete full course of augmentin prescribed at his urgent care visit will dc w/ 2 norco 5mg tablets for pain instructed to f/u w/ pcp this week - sees [place] doc
[2023-05-28 08:03] LABS: INFLUENZA A NEGATIVE (NEGATIVE); INFLUENZA B NEGATIVE (NEGATIVE); RESPIRATORY SYNCTIAL VIRUS NEGATIVE (NEGATIVE); SARS-CoV-2 Xpert Express NEGATIVE (NEGATIVE)
[2023-05-28 09:10] VITALS: O2SAT 97
[2023-05-28] MEDS ORDERED: NORCO 5/325 MG ONE (09:25)
[2023-05-28] MEDS: NORCO 5/325 MG PO ONE (09:26)
[2023-05-28 09:34] VITALS: BP 118/89; PULSE 72; RESP 18
== END 2023-05-28 09:35 | disposition home or self-care (01) ==
LOC: ED 06:58
DX: H66.93 Otitis media, unspecified, bilateral (principal); J02.9 Acute pharyngitis, unspecified; H92.03 Otalgia, bilateral; R05.1 Acute cough; I10 Essential (primary) hypertension; Z79.899 Other long term (current) drug therapy
CPT/HCPCS: 0241U; 87651; 96372; 99283; J1885; A9270-GY

== ENCOUNTER 2025-01-01 20:57 | Observation (INO) | payer OTHER, BC ==
[2025-01-01 21:19] LABS: BASOPHIL % 0.6 % (0.2-1.2); Basophil (Absolute #) 0.04 x10^3/uL (0.01-0.08); Eosinophil (Absolute #) 0.08 x10^3/uL (0.04-0.54); Hematocrit 46.5 % (40.1-51.0); Hemoglobin 16.1 g/dL (13.7-17.5); IMMATURE GRAN # 0.01 x10^3u/L (0.001-0.031); IMMATURE GRAN % 0.2 % (0.001-0.429); Lymphocyte (Absolute #) 3.07 x10^3/uL (1.32-3.57); Mean Corpuscular Hemoglobin 30.6 pg (25.7-32.2); Mean Corpuscular Hgb Concent. 34.6 g/dL (32.3-36.5); Monocyte (Absolute #) 0.40 x10^3/uL (0.30-0.82); NUCLEATED RBC # 0.00 x10^3u/L (0.00-0.012); NUCLEATED RBC % 0.0 % (0.00-0.2); Platelet Count 321 x10^3/uL (163-337); Red Blood Count 5.27 x10^6/uL (4.63-6.08); White Blood Count 6.7 x10^3/uL (4.23-9.07)
[2025-01-01 21:33] LABS: Calcium 9.7 mg/dL (8.4-10.2); Carbon Dioxide 28 mmol/L (22-30); Creatinine 1 1.44 mg/dL (0.66-1.25); EST GLOMERULAR FILTRATION RATE 63.0 ML/MIN; ETHYL ALCOHOL < 10 mg/dL (0-10); Glucose 93 mg/dL (74-106); Potassium 3.8 mmol/L (3.5-5.1); SGOT/AST 27 U/L (17-59); SGPT/ALT 32 U/L (0-50); Total Protein 7.6 g/dL (6.3-8.2)
--- NOTE | 2025-01-01 22:15 | ERPHSYRPT ---
- History of Present Illness Time Seen by Provider: 01/01/25 22:11 Source: patient Exam Limitations: no limitations Patient Subjective Stated Complaint: pt reports approximately 10am while working he experienced numbness to his nose. reports he went on working and his face also began to feel numb on both sides. pt states he got home from work around 630pm this evening and noticed his speech was slurred and his left arm felt tingly. pt states he feels like his speech is worsening. Triage Nursing Assessment: pt is aox3, pt answers LOC questions correctly, pt able to follow commands, speech is slurred, afebrile, pupils perrl, cap refill < 3 seconds, radial pulses strong and equal, hand client business manager are strong and equal, pt is ambulatory with no difficulties, pt skin pink warm dry. Physician History: Patient is a 39-year-old male history of hypertension hyperlipidemia GERD hernia presents to our ED for strokelike symptoms that started at 10 AM. 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 While at work he states his nose began to feel numb. The numbness spread to his face and eventually down his left arm. Patient states then he felt numbness on both sides of his body. Patient did not seek medical attention. However when he got to work at 630 this evening patient's observed that his speech was slurred and he had difficulty finding words. They decided to come to our ED for an evaluation. Symptoms started approximately 8 hours prior to arrival. Patient is outside the therapeutic window for tPA. Patient and his both feel he is currently at his baseline. No focal or lateralizing weakness. No vomiting no chest pain no shortness of breath. They voiced no other complaints or concerns at this time. Portions of this note were created with voice recognition technology. There may be grammatical, spelling, punctuation or sound alike errors Timing/Duration: today Severity: moderate Modifying Factors: Improves With: nothing Associated Symptoms: denies symptoms Allergies/Adverse Reactions: No Known Drug Allergies Allergy (Verified 01/01/25 21:21) Home Medications: Lisinopril 10 mg [Zestril 10 MG] 10 mg PO DAILY 01/01/25 [History] Meloxicam 7.5 mg PO DAILY 01/01/25 [History] PANTOPRAZOLE 40 mg Tablet [Protonix 40MG Tablet] 40 mg PO DAILY 01/01/25 [History] Topiramate 50 mg PO BID 01/01/25 [History] Hx Tetanus, Diphtheria Vaccination/Date Given: Yes Hx Influenza Vaccination/Date Given: Yes Hx Pneumococcal Vaccination/Date Given: No Immunizations Up to Date: Yes Travel Risk - International Travel Have you traveled outside of the country in past 3 weeks: No - Emerging Infectious Disease Are you exhibiting symptoms associated with any current EIDs: No - Review of Systems All Other Systems: Reviewed and Negative - Past Medical History Pertinent Past Medical History: Yes Neurological History: No Pertinent History ENT History: No Pertinent History Cardiac History: High Cholesterol, Hypertension Respiratory History: No Pertinent History Endocrine Medical History: No Pertinent History Musculoskeletal History: No Pertinent History GI Medical History: GERD, Hernia History: No Pertinent History Psycho-Social History: No Pertinent History Male Reproductive Disorders: No Pertinent History - Past Surgical History Past Surgical History: Yes Cardiac: No Pertinent History Respiratory: No Pertinent History Gastrointestinal: Hernia Repair Genitourinary: Kidney Surgery Musculoskeletal: No Pertinent History Male Surgical History: No Pertinent History - Social History Smoking Status: Never smoker Exposure to second hand smoke: No Drug Use: none - Social Determinants of Health Will the patient participate in the screening: Yes Do you worry about a steady place to live?: No Do you have any problems with any of the following?: No known problems In the past 12 months,have you had to go without utilities?: No Transportation Issues: No Has anyone in your support network made you feel unsafe?: No Have you or anyone in your house had to go w/o enough food: No - Nursing Vital Signs Nursing Vital Signs: Initial Vital Signs Temperature 97 F 01/01/25 21:00 Pulse Rate 82 01/01/25 21:00 Respiratory Rate 24 01/01/25 21:00 Blood Pressure 139/96 01/01/25 21:00 O2 Sat by Pulse Oximetry 100 01/01/25 21:00 Pain Scale Pain Intensity 4 - Physical Exam General Appearance: no apparent distress, alert Eye Exam: PERRL/EOMI, eyes nml inspection Ears, Nose, Throat Exam: normal ENT inspection, pharynx normal, moist mucous membranes Neck Exam: normal inspection, non-tender, supple, full range of motion Respiratory Exam: normal breath sounds, lungs clear, airway intact, No respiratory distress Cardiovascular Exam: regular rate/rhythm, normal heart sounds, normal peripheral pulses Gastrointestinal/Abdomen Exam: soft, normal bowel sounds, No tenderness, No mass Back Exam: normal inspection, normal range of motion, No CVA tenderness, No vertebral tenderness Extremity Exam: normal inspection, normal range of motion, pelvis stable Neurologic Exam: alert, oriented x 3, cooperative, normal mood/affect, sensation nml, No motor deficits Skin Exam: normal color, warm, dry, No rash Lymphatic Exam: No adenopathy SpO2 Interpretation: normal SpO2: 97 O2 Delivery: Room Air - Course Nursing assessment & vital signs reviewed: Yes EKG Interpreted by Me: RATE (40), Sinus Rhythm, NORMAL AXIS, NORMAL INTERVALS, NORMAL QRS - CT Exams Head CT Interpretation: Tele-radiologist Report (Normal CT head without contrast normal CTA head as well) Other CT Interpretation: Tele-radiologist Report (Normal CTA neck) Ordered Tests: Active Orders 24 hr Category Date Time Status Radio Presenter STAT Care 01/01/25 21:11 Active EKG-ER Only STAT Care 01/01/25 21:10 Active IV Insertion STAT Care 01/01/25 21:10 Active Pulse Oximetry (ED) STAT Care 01/01/25 21:[address] ANGIOGRAPHY NECK [CT] Stat Exams 01/01/25 21:12 Taken CTA HEAD W AND/OR WO CONTRAST [CT] Stat Exams 01/01/25 21:12 Taken CBC W DIFF Stat Lab 01/01/25 21:05 Completed CMP Stat Lab 01/01/25 21:05 Completed ETHYL ALCOHOL Stat Lab 01/01/25 21:05 Completed TROPONIN Q4H Lab 01/01/25 21:05 Completed TROPONIN Q4H Lab 01/02/25 01:15 Ordered TROPONIN Q4H Lab 01/02/25 05:15 Ordered UA W/RFX UR CULTURE Stat Lab 01/01/25 21:11 Ordered Transfer Order Routine Transfer 01/01/25 Ordered Medication Summary Generic Name Dose Route Start Last Admin Trade Name Freq PRN Reason Stop Dose Admin Sodium Chloride 1,000 mls @ 100 mls/hr 01/01/25 21:15 01/01/25 21:34 Sodium Chloride 0.9% 1000 Ml IV 01/31/25 21:14 100 mls/hr .Q10H KESHIA Administration Discontinued Medications Generic Name Dose Route Start Last Admin Trade Name Freq PRN Reason Stop Dose Admin Aspirin 324 mg 01/01/25 22:35 01/01/25 22:39 Aspirin 81 Mg Tab.Chew PO 01/01/25 22:36 324 mg STAT ONE Administration Aspirin Confirm 01/01/25 22:38 Aspirin 81 Mg Tab.Chew Administered 01/01/25 22:39 Dose 324 mg .ROUTE .STK-MED ONE Lab/Rad Data: Laboratory Result Diagrams 01/01/25 21:05 01/01/25 21:05 Laboratory Results 01/01/25 01/01/25 01/01/25 Range/Units 21:05 21:05 21:05 WBC 6.7 (4.23-9.07) x10^3/uL RBC 5.27 (4.63-6.08) x10^6/uL Hgb 16.1 (13.7-17.5) g/dL Hct 46.5 (40.1-51.0) % MCV 88.2 (79.0-92.2) fL MCH 30.6 (25.7-32.2) pg MCHC 34.6 (32.3-36.5) g/dL RDW 12.1 (11.6-14.4) % Plt Count 321 (163-337) x10^3/uL MPV 10.1 (9.4-12.4) fL Gran % 45.8 (34.0-67.9) % Immature Gran % (Auto) 0.2 (0.001-0.429) % Nucleat RBC Rel Count 0.0 (0.00-0.2) % Eos # (Auto) 0.08 (0.04-0.54) x10^3/uL Immature Gran # (Auto) 0.01 (0.001-0.031) x10^3u/L Absolute Lymphs (auto) 3.07 (1.32-3.57) x10^3/uL Absolute Monos (auto) 0.40 (0.30-0.82) x10^3/uL Absolute Nucleated RBC 0.00 (0.00-0.012) x10^3u/L Lymphocytes % 46.2 (21.8-53.1) % Monocytes % 6.0 (5.3-12.2) % Eosinophils % 1.2 (0.8-7.0) % Basophils % 0.6 (0.2-1.2) % Absolute Granulocytes 3.05 (1.78-5.38) x10^3/uL Basophils # 0.04 (0.01-0.08) x10^3/uL Sodium 139 (135-145) mmol/L Potassium 3.8 (3.5-5.1) mmol/L Chloride 104 (98-107) mmol/L Carbon Dioxide 28 (22-30) mmol/L Anion Gap 11.5 (5-15) MEQ/L BUN 14 (9-20) mg/dL Creatinine 1.44 H (0.66-1.25) mg/dL Estimated GFR 63.0 ML/MIN Glucose 93 (74-106) mg/dL Calcium 9.7 (8.4-10.2) mg/dL Total Bilirubin 1.70 H (0.2-1.3) mg/dL AST 27 (17-59) U/L ALT 32 (0-50) U/L Alkaline Phosphatase 48 (38-126) U/L Troponin I < 0.012 (0.000-0.033) ng/mL Serum Total Protein 7.6 (6.3-8.2) g/dL Albumin 5.0 (3.5-5.0) g/dL Ethyl Alcohol < 10 (0-10) mg/dL - Progress Progress: improved Progress Note: Spoke to teleneurologist Dr. Weems at 10:32 PM. She advised hospitalization for MRI head and cervical spine. At this point it is not clear whether it was a stroke versus a migraine. Patient is not a candidate for TNK. Patient outside of the therapeutic window and not a candidate from a clinical point of view plan of care discussed with patient and his . They agree to admission to [facility] for further evaluation and treatment. Portions of this note were created with voice recognition technology. There may be grammatical, spelling, punctuation or sound alike errors 01/01/25 22:32 Patient is a 39-year-old male history of hypertension hyperlipidemia GERD hernia presents to our ED for strokelike symptoms that started at 10 AM. Physical exam is not remarkable. No focal or lateralizing symptomology. Sensation and motor function is within normal limits bilaterally. CTA head neck and CT head without contrast are all negative. Laboratory workup reveals an elevated serum creatinine otherwise no significant findings on laboratory workup. at bedside states patient is currently at his baseline. Per neurology we will admit patient for further evaluation and treatment. Case discussed with hospitalist Dr. Matos who accepts admission at 10:46 PM. IV fluids are running. Patient received a dose of chewable aspirin. Family voices no other complaints or concerns at this time. History obtained from patient and his who is at the bedside. Differential diagnosis includes stroke, TIA, complex migraine Portions of this note were created with voice recognition technology. There may be grammatical, spelling, punctuation or sound alike errors Complexity of problems addressed is moderate acute complicated. No critical care time. Complexity of data reviewed and analyzed is extensive. Test ordered chest reviewed results analyzed and correlated clinically with history and physical exam. Management discussed with teleneurologist and hospitalist. Risk of complication and or risk of morbidity/mortality of patient management is high. Patient requires hospitalization for further evaluation and treatment. Vital stable. Time spent to admit patient approximately 10 minutes. Plan of care established for shared decision making. No social determinants of health present to impede follow-up. Portions of this note were created with voice recognition technology. There may be grammatical, spelling, punctuation or sound alike errors 01/01/25 22:50 Counseled pt/family regarding: lab results, diagnosis - Departure Departure Disposition: Observation Clinical Impression: TIA (transient ischemic attack), Slurred speech, Stroke, Elevated serum creatinine Condition: Stable Critical Care Time: No Referrals: [facility] [Primary Care Provider, UNKNOWN] - Follow up/PCP as directed
[2025-01-01] MEDS ORDERED: BABY ASPIRIN 81 MG CHEW ONE (22:38)
[2025-01-01] MEDS: BABY ASPIRIN 81 MG CHEW PO ONE (22:39)
--- NOTE | 2025-01-01 22:44 | PCM.CONS ---
History of Present Illness - Neuro Consultation Date of Consultation Date: 01/01/25 ED Arrival Date & Time: 01/01/25 20:57 * Required General Template * Patient identity was confirmed at the beginning of the consult with the patient/family/staff using two personal identifiers * Clear Other Trevor Graham Male , 39 y.o. (1985) Hospital Clock 22:20 EDT [facility] - [place] See more Neuro Cohort 2 Neuro Emergency Patient Location and Admission Status * Chief Complaint * CODE STROKE HISTORY OF PRESENT ILLNESS Family members and medical staff present * DR. MARY REYNOSO History of present illness (Include relevant elements: Location, Severity, Timing, Quality, Duration, Context, Modifying Factors, Signs, Symptoms) * Patient is a 39 yr. old RH gentleman who presents to the ED secondary to stroke symptoms < 4.5 hrs.... Patient was at work at which time, he states that his nose became numb..... completed work... then at 6:30PM at home face noted facial numbness/ and L hand numbness. He was having difficulty with completing sentences... poor concentration... on [address] video eval symptoms improving/ numbness persisting in left hand... + hx of migraine headaches.... daily... he is on TPX for this... Review Of Systems Review Of Systems Guide Pertinent Review of Systems * Review of Systems * Constitutional: Denies fevers, chills, weight loss ENT: Denies tinnitus Ophthalmology: Denies diplopia, blurred vision, vision loss Respiratory: Denies SOB, cough Cardiovascular: Denies chest pains, palpitations GI: Denies nausea, vomiting : Denies hematuria Hematology: Denies excessive bleeding Musculoskeletal: Denies back pain, neck pain, joint pain Neurology: Denies headache, altered mentation Mental Health: Denies anxiety Dermatology: Denies rash To my knowledge, this ROS is complete and accurate * Medical History Unable to assess Medical History * Clear Past Medical History Includes Other Medical History Past Procedures Clear Other Past Procedures Allergies Unable to assess Allergies * Clear Other Allergies Medications Unable to assess Anti-Coagulants * Clear Anti-Platelets * Clear Other Medications Imitrex PRN 100mg - no longer taking TPX 50mg BID Lisinopril 10mg q day Pantoprazole Protonix 40mg q day Maloxicam Social History * Alcohol Use Clear Illicit Drug Use Clear Tobacco Use Clear Other Social History 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 Speech is fluent/ naming is intact/ Repetition intact/ no evidence of aphasia noted. No dysarthria noted. 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 (=) 4-2mm bilaterally/ EOMs intact in all directions of gaze/symmetric facial sensation V1-2 -3 bilaterally/ symmetrical facial upper/ lower noted/ audition intact/ tongue midline/ phonation intact/ + gag reflex intact/ SCMs(=) Motor exam- no pronator drift/ 4/5+ bilateral UEs/ LEs proximal to distal Sensory-intact to light touch throughout bilateral UEs/ LEs/ no agraphesthesia/ no astereognosis/ no double simultaneous extinction DTRs- deferred/ no babinski sign illicited Cerebellar- finger to nose/ heel-cui (=)/ no dysmetria noted/ no overshoot nystagmus/ no rebound phenomenon Gait- not tested Fine motor- no resting tremor/ no myoclonus/ no abnormal involuntary movements/ no choreiform movements Gen: No apparent distress, non-toxic appearing Psych: normal affect HEENT: No visible bruising, no mucosal pallor Ophth: No scleral icterus, no conjunctival injection or proptosis Neck: No nuchal rigidity, turns neck without difficulty Resp: normal respirations, no distress, speaking in full sentences CV: No visible edema in LE Abd: No abd distention noted MSK: No joint swelling, erythema noted. No contractures noted. Skin: No pallor. No visible rashes or bruising Clinician assisting with exam JACLYN Avilez NIH Stroke Scale Unable to assess Recorded by: mary mccray Recorded On: 01/01 09:27 NIH Stroke Scale Score: 0 see details labs And Imaging I reviewed labs Clear I reviewed diagnostic reports such as radiological imaging, echocardiogram, and EEG reports Clear I reviewed diagnostics such as radiological images and electroencephalograms Clear Labs and Imaging Comments * labs - WNL CT scan br- unrevealing of abnormality Assessment Assessment * (To include Patient Summary, Differential Diagnoses, Medical Reasoning, and Diagnosis) 1. TIA 2. Migraine headache 3. NIHSS 0 Diagnosis Diagnosis * TIA Case Discussed With * Dr. Reynoso Recommendations Recommendations * Depacon 1 gram IV x 1 now, followed by Depakote ER 250mg BID Recommend Esgic q 6 hrs. PRN severe headache Recommend Toradol 60mg IV load, followed by 30mg IV q 6 hrs. PRN Zinc 220mg q day Folic acid 1mg q day Thiamine 100mg q day Pyridoxine 1.5mg q day Flexeril 4mg TID PRN cervicalgia MRI brain w/wo jailyn MRI cervical wo jailyn MRA/ MRV brain w jailyn Echo w bubble for possible PFO Patient may require conscious sedation for neuroimaging Zofran 4mg IV q 6 hrs. Aggressive medical treatment of stroke risk factors: - Frequent vital signs and neurochecks - Glucose 140-180 and aggressive fever control for now - NPO until swallow evaluation - High-intensity statin therapy for goal LDL <70 - Check HgA1c, lipid panel MEDS: Antiplatelet vs. Anticoagulation: Pts with TIA with ABCD2 score of 4 or more OR minor ischemic stroke NIHSS of 3 or less may benefit from 21 days of dual antiplatelet. Day 1: Plavix 300mg x1 and ASA 81mg x1 Day 2-21: Plavix 75mg qday and ASA 81mg qday Day 22 and beyond: ASA 81mg OR plavix 75mg qday - IF severe large vessel INTRACRANIAL stenosis noted on CTA: ASA 81 mg + Plavix 75 mg x 90 days, then ASA 81 mg or Plavix ALONE, preferably plavix - If Plavix (Clopidogrel) initiated, recommend [id number] polymorphism eval - Target LDL <70, treatment per medical team if elevated, initiate or change current Statin to Lipitor 80mg PO q day - IF pt has Atrial Fibrillation then in general: antiplatelet bridge for 4-14 days, then anticoagulate (timing depending on size of stroke, blood on f/u imaging, TTE) - DVT prophylaxis: SCDs, SC LMWH or heparin if no medical contraindication. - Acute lowering of BP is not indicated in the first 24-48 hours following acute ischemic stroke in those who did not receive tPA/thrombectomy. Therefore, recommend permissive HTN for the initial 24 hours. Hold some/all BP meds x 24 hrs unless SBP > 220 or DBP > 120 or end-organ damage/risk or stroke ruled out. A reasonable goal is to lower blood pressure by 15% during the first 24 hours after stroke. - Stroke education: to include healthy dietary and physical activity choices. Tobacco cessation counseling of smoker - PT/OT/ST consult. - Acute Inpatient Rehab evaluation - Case management consult (if needed). - Recommend Inpt neurology f/u if available. If not, please call SOC back for further questions or concerns. Diagnostics: - MRI brain without contrast - w DWI/ ADC - MRA head/neck without contrast - Echocardiogram with bubble study to evaluate for any efowm-nd-kapc shunt// May need to consider TIEN if TTE comes back normal - If concern for flow limitation within extra cranial - intracranial vasculature, then bilateral Carotid dopplers/ Transcranial dopplers - Labs: Fasting lipid panel, HgA1c, TSH, B12, SPEP w IPEP - Please maintain on telemetry to look for any underlying atrial fibrillation - Consider Outpatient Cardiac Event monitor - Orthostatic BPs q shift and record - EEG baseline - Overnight pulse oximetry, review risk factor for underlying OSAS- outpatient PSG if not considered or evaluated in the past. This tele-neurology consultation was performed via two-way videoconferencing. I have discussed the case with ED physician, RN and patient/family. They understand and agree with this plan. ALL ABOVE IF NO CONTRAINDICATIONS: After the above preliminary workup is completed, further decisions regarding diagnosis and/or management can be made by primary team and/or in-house neurologist. Please re-consult our Teleneurology service, if in-house neurology not available, with additional questions, concerns, or changes in this patients neurologic status ALL ABOVE IF NO CONTRAINDICATIONS: After the above preliminary workup is completed, further decisions regarding diagnosis and/or management can be made by primary team and/or in-house neurologist. Please re-consult our Teleneurology service, if in-house neurology not available, with additional questions, concerns, or changes in this patients neurologic status I have obtained verbal consent from patient/surrogate for two-way audio/visual encounter * Clear Portions of the evaluation were not assessed due to the following Other THROMBOLYSIS INCLUSION/EXCLUSION CRITERIA * Inclusion Criteria * Must answer YES to ALL in order to proceed with thrombolysis. Clear All Symptoms suggestive of ischemic stroke that are deemed disabling Able to initiate treatment within 4.5 hours of time last known well? Age 18 years or older Exclusion Criteria Physicians with expertise in cerebrovascular disease may deem thrombolysis to be reasonable in the presence of one or more exclusion criteria after careful c onsideration of potential risk versus benefit to the patient. Default all to No Default all to Yes Clear All Acute intracranial hemorrhage (ICH) History of ICH other than history of cerebral microbleeds Unable to maintain BP <185/110 despite aggressive antihypertensive treatment Acute internal bleeding Severe head trauma within last 3 months Arterial puncture at non-compressible site within 7 days Infective endocarditis Gastrointestinal bleeding within last 21 days or structural GI malignancy Intracranial or spinal surgery within last 3 months Thrombocytopenia: platelet count <100 000/mm3 INR > 1.7, PT > 15 or PTT > 40 Low-Molecular Weight Heparin within preceding 24 hours Direct Thrombin Inhibitors or Factor Xa Inhibitors within preceding 48 hours Relative Exclusion Criteria Physicians with expertise in cerebrovascular disease may deem thrombolysis to be reasonable in the presence of one or more exclusion criteria after careful consideration of potential risk versus benefit to the patient. Clear All Ischemic stroke within last 3 months Major trauma (excluding head trauma) within past 14 days Severe Hypoglycemia (below 50 mg/dL) or Hyperglycemia (above 400 mg/dL) Wake-Up Stroke Inclusion Criteria Patient with suspected ischemic stroke who wake up with stroke symptoms or have unclear time of onset, and present within 4.5 hours of stroke symptom re cognition may be considered for thrombolytic treatment based upon MR imaging and the following criteria Clear THROMBOLYSIS RECOMMENDATION Thrombolysis Recommended ? Clear Please select a reason why Thrombolysis was not recommended * Other Billing/Diagnosis Charge Capture DIAGNOSIS CODE DIAGNOSIS G45.9 Transient cerebral ischemic attack, unspecified(Primary) G43.109 Migraine with aura, not intractable, without status migrainosus G43.809 Other migraine, not intractable, without status migrainosus BILLING CHARGE CODE CHARGE DESCRIPTION DIAGNOSES DATE OF SERVICE G0427 G0427 - Acute Stroke Level 3 -ComplexInitial Consult - Comprehensive Hx, Comprehensive Exam, High Complexity MDM G45.9, G43.109, G43.809 Jan 01, 2025, 09:32 pm Attestation Interaction Mode * Video * First Video Attempt System Logged: 01/01/2025 21:21 01/01/2025 21:21 mm/dd/yyyy hh:mm (24 Hr) Phone * First Phone Attempt System Logged: 01/01/2025 21:31 01/01/2025 21:31 mm/dd/yyyy hh:mm (24 Hr) Your Current Location Enter Current Zip Code * [address] Last saved 1m ago. Auto Launch Available Clinical Contact All Video Carts IPAD - [facility] Available [facility] ER (Access Cart 4.0)selected Available [facility] (Access Cart 4.1) Available IP[facility] Available Phone Only Rapid Room Contact Numbers Provided at intake DR. MARY REYNOSO [phone] Callback Number [phone] Number not listed? Enter valid 10-digit number E.g. [phone] All other numbers Readiness Form Template Change forms: Consult Note General Review Of Systems Medical History Allergies & Medications Social & Family History Vital Signs Exam NIH Stroke Scale Labs & Imaging Assessment Diagnosis Recommendations Thrombolysis I/E Criteria Thrombolysis Recommendation Billing/Diagnosis Attestation Telemed [employer] 11.9.0 [employer] 2024 Providers: Attending Provider: ED Provider: MARY REYNOSO Consulting Provider: MARY ALAS DO cc:: The requesting physician will be sent a copy of the consult. - History of Present Illness HPI: The patient is a 39M Review of Systems - Review of Systems Review of Systems (Narrative): Pertinent positive and negative findings as per HPI. All other systems negative. - Past Medical History Past Medical History: Yes Neurological History: No Pertinent History ENT History: No Pertinent History Cardiac History: High Cholesterol, Hypertension Respiratory History: No Pertinent History Endocrine Medical History: No Pertinent History Musculoskelatal History: No Pertinent History GI Medical History: GERD, Hernia History: No Pertinent History Pyscho-Social History: No Pertinent History Male Reproductive Disorders: No Pertinent History - Past Surgical History Past Surgical History: Yes Cardiac History: No Pertinent History Respiratory Surgery: No Pertinent History GI Surgical History: Hernia Repair Genitourinary Surgical Hx: Kidney Surgery Musculskeletal Surgical Hx: No Pertinent History Male Surgical History: No Pertinent History - Social History Smoking Status: Never smoker Exposure to second hand smoke: No Alcohol: Occasionally Drug Use: none - Social Determinants of Health Will the patient participate in the screening: Yes Do you worry about a steady place to live?: No Do you have any problems with any of the following?: No known problems In the past 12 months,have you had to go without utilities?: No Have you or anyone in your house had to go without enough: No Transportation Issues: No Has anyone in your support network made you feel unsafe?: No Physical Exam - Vital Signs Vital Signs: Vital Signs - 24 hr 01/01/25 01/01/25 01/01/25 21:00 21:10 22:14 Temperature 97 F Pulse Rate 90 88 Respiratory 18 19 Rate Blood Pressure 139/96 124/80 Blood Pressure 139/96 [Right Arm] O2 Sat by Pulse 99 97 96 Oximetry 01/01/25 22:35 Temperature Pulse Rate Respiratory Rate Blood Pressure Blood Pressure [Right Arm] O2 Sat by Pulse 97 Oximetry - NIHSS Stroke Scale Date Completed: 01/01/25 Time Stroke Scale Completed: 21:13 Results - Labs Lab/Micro Results: Lab Results-Last 24 Hours 01/01/25 01/01/25 01/01/25 Range/Units 21:05 21:05 21:05 WBC 6.7 (4.23-9.07) x10^3/uL RBC 5.27 (4.63-6.08) x10^6/uL Hgb 16.1 (13.7-17.5) g/dL Hct 46.5 (40.1-51.0) % MCV 88.2 (79.0-92.2) fL MCH 30.6 (25.7-32.2) pg MCHC 34.6 (32.3-36.5) g/dL RDW 12.1 (11.6-14.4) % Plt Count 321 (163-337) x10^3/uL MPV 10.1 (9.4-12.4) fL Gran % 45.8 (34.0-67.9) % Immature Gran % (Auto) 0.2 (0.001-0.429) % Nucleat RBC Rel Count 0.0 (0.00-0.2) % Eos # (Auto) 0.08 (0.04-0.54) x10^3/uL Immature Gran # (Auto) 0.01 (0.001-0.031) x10^3u/L Absolute Lymphs (auto) 3.07 (1.32-3.57) x10^3/uL Absolute Monos (auto) 0.40 (0.30-0.82) x10^3/uL Absolute Nucleated RBC 0.00 (0.00-0.012) x10^3u/L Lymphocytes % 46.2 (21.8-53.1) % Monocytes % 6.0 (5.3-12.2) % Eosinophils % 1.2 (0.8-7.0) % Basophils % 0.6 (0.2-1.2) % Absolute Granulocytes 3.05 (1.78-5.38) x10^3/uL Basophils # 0.04 (0.01-0.08) x10^3/uL Sodium 139 (135-145) mmol/L Potassium 3.8 (3.5-5.1) mmol/L Chloride 104 (98-107) mmol/L Carbon Dioxide 28 (22-30) mmol/L Anion Gap 11.5 (5-15) MEQ/L BUN 14 (9-20) mg/dL Creatinine 1.44 H (0.66-1.25) mg/dL Estimated GFR 63.0 ML/MIN Glucose 93 (74-106) mg/dL Calcium 9.7 (8.4-10.2) mg/dL Total Bilirubin 1.70 H (0.2-1.3) mg/dL AST 27 (17-59) U/L ALT 32 (0-50) U/L Alkaline Phosphatase 48 (38-126) U/L Troponin I < 0.012 (0.000-0.033) ng/mL Serum Total Protein 7.6 (6.3-8.2) g/dL Albumin 5.0 (3.5-5.0) g/dL Ethyl Alcohol < 10 (0-10) mg/dL - Radiology Orders Radiology Orders: Radiology Procedures Category Date Time Status CT ANGIOGRAPHY NECK [CT] Stat Exams 01/01/25 21:12 Taken CTA HEAD W AND/OR WO CONTRAST [CT] Stat Exams 01/01/25 21:12 Taken Impressions & Recommendations - ED Arrival Time ED Arrival Date & Time: ED Arrival Date and Time 01/01/25 20:57 Last known well time: - NIHSS IV Thrombolysis Standard of Care: IV thrombolysis as a standard of care in acute stroke discussed with MARY REYNOSO. Risk, benefits, and options of IV thrombolytic therapy for acute ischemic stroke were discussed with the patient/family TREVOR GRAHAM. We discussed that use of IV tenecteplase is in line with national stroke guidelines. We discussed that risks of IV thrombolytic use include intracranial hemorrhage, other fatal bleeding risks, and angioedema. Alternatives of treatment, including not proceeding with thrombolytic therapy were discussed. - Recommendations Recommendations: -Neuro checks, NIHSS, vital signs monitoring as per post tenecteplase protocol -Repeat non contrast head CT or noncontrast MRI brain 24 hours after IV thrombolyltic administration. -Obtain STAT non contrast head CT if there are new neurological deficits, worsening of current deficits, or with complaint of severe headache. Notify Neurology ADRIÁN of changes in neurological exam. -Nicardipine gtt as needed to maintain BP< 180/105 x 24hr post tenecteplase administration. -Monitor for angioedema -SCD's for DVT prophylaxis. Work up: -Basic labs (CBC, BMP, TSH+T4) if not done already. -INR,PTT if not done already -Fasting Lipid Panel and Hgb A1c -Transthroacic echocardiogram [with bubble study] -EKG + Telemetry- monitor for A-FIB Secondary Stroke Prevention -Hold off on antiplatelet therapy x 24 hr post IV thrombolytic therapy Decision to initiate antiplatelet therapy, or anticoagulation if needed, will be based on repeat imaging at 24 hour post thrombolytic administration. -If not medical contraindication, start high intensity statin. Eg. Atrovastatin 80 mg daily Risk Factor Management -HTN control: BP <180/105 for first 24 hr post tenecteplase -If diabetic, optimize glucose control: extermination inspector goal HgA1c <7 -HLD control: Long-term goal LDL <70. High intensity statin recommended. Moderate intensity statin in patients > 75 years. -Smoking Alcohol Use Drug use cessation counseling Stroke Rehabilitation: -Physical therapy, occupational therapy, speech therapy consults -Social work and case management consults for help with discharge needs. Impression and recommendation were discussed with Dr. MARY REYNOSO Thank you for allowing us to participate in this patient's care. Please call [facility] with questions, concerns, or change in patient's neurological status. This consult was performed via secure telemedicine audio/visual platform with [ ] RN assisting at bedside. Patient identity verified and consent obtained. TIQ recieved at [ ] Neuro Cart Time: Delays in Patient Encounter: Assessment & Plan - Encounter Encounter: "The entirety of this encounter was performed via Telemedicine using audio and visual "
[2025-01-02 01:39] LABS: Glucose, Urine Negative (Negative); Protein,Urine Dip Negative (Negative); RBC 0-2 /HPF (0-5); WBC 0-2 /HPF (0-5)
--- NOTE | 2025-01-02 02:32 | PCM.HP ---
History of Present Illness - Chief Complaint Chief Complaint: TIA Date: 01/02/25 History of Present Illness: The patient is a 39-year-old male with a PMH of chronic migraines, hypertension, who presents to the emergency room with complaints of paresthesias and slurred s peech. The patient reports that he was at his usual state of health until around 11 AM today when he began experiencing some numbness of his nose. He initially did not think much of it but then the numbness gradually progressed to his entire face and subsequently involved his left hand. Upon returning home at around 6:30 PM, his girlfriend noted that his speech was slurred and urged him to go to the emergency department. 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 The patient does report chronic daily migraines for which he had been started on Topamax, but notes that the migraines have persisted. Reports that he had a migraine today as well at the onset of his symptoms, which is fairly typical for him. At the time of interview, he reported that he continues to have some word finding difficulties but that his facial paresthesias have resolved and that he only currently has mild numbness of the fingertips of the left hand. He reported of 4 out of 10 diffuse headache at the time of interview, which is his baseline. He also reported feeling as though he has small amounts of material in his eyes that he feels he needs to clean. Denied experiencing focal weakness. Denied chest discomfort, shortness of breath, fever, or chills. Also denied cough, nausea, vomiting, abdominal pain, diarrhea, or urinary complaints. The patient underwent an extensive evaluation in the emergency room which was all reviewed. The reports for the head CT angiogram and CT angiogram of neck were not available for review. Discussed with the ER provider who noted that they were unremarkable. Laboratory evaluation was reviewed with WBC count 6.7, hemoglobin 16.1, platelet count 321, sodium 139, potassium 3.8, BUN 14, creatinine 1.44 (baseline 0.9), with troponin less than 0.012 and UA unremarkable with ethyl alcohol less than 10. Teleneurology was consulted in the emergency department. Their documentation was reviewed and recommendations appreciated. The case was discussed with the ER provider in detail and chart was reviewed. Review of Systems: A complete and thorough review of system was performed and was negative except as stated in the HPI. Physical Examination: General: Well-nourished, in no acute distress. Overweight HEENT: Head atruamatic normocephaic, PERRL, no scleral icterus, no oral lesions Cardiovascular: Regular rate and rhythm, S1S2 normal, no murmurs appreciated Respiratory: Clear to auscultation bilaterally, no wheezes, rales, rhonchi Abdomen: Soft, nontender, nondistended, normoactive bowel sounds, no guarding Musculoskeletal: Full range of motion. No obvious swelling or tenderness noted Neurological: Alert and oriented x 3. Strength 5/5 in all extremities grossly, no obvious focal deficits noted Psychiatric: Normal mood, affect, with cohesive thought process Assessment & Plan TIA, rule out CVA versus complex migraine - Continue with neurochecks - Cardiac monitoring - Obtain echocardiogram - Follow-up brain and cervical spine MRI with and without contrast - Continue with Lipitor 80 mg p.o. daily - Obtain speech and swallow evaluation Chronic conditions: Hypertension, GERD - Continue with home medications lisinopril and Protonix DVT prophylaxis: Heparin subcu CODE STATUS: Full code Medications & Allergies Home Medications: Home Medication List Lisinopril 10 mg [Zestril 10 MG] 10 mg PO DAILY 01/01/25 [History Confirmed 01/01/25] Meloxicam 7.5 mg PO DAILY 01/01/25 [History Confirmed 01/01/25] PANTOPRAZOLE 40 mg Tablet [Protonix 40MG Tablet] 40 mg PO DAILY 01/01/25 [History Confirmed 01/01/25] Topiramate 50 mg PO BID 01/01/25 [History Confirmed 01/01/25] Allergies/Adverse Reactions: Allergies Allergy/AdvReac Type Severity Reaction Status Date / Time No Known Drug Allergies Allergy Verified 01/01/25 21:21 - Past Medical History Past Medical History: Yes Neurological History: No Pertinent History ENT History: No Pertinent History Cardiac History: High Cholesterol, Hypertension Respiratory History: No Pertinent History Endocrine Medical History: No Pertinent History Musculoskelatal History: No Pertinent History GI Medical History: GERD, Hernia History: No Pertinent History Pyscho-Social History: No Pertinent History Male Reproductive Disorders: No Pertinent History - Past Surgical History Past Surgical History: Yes Cardiac History: No Pertinent History Respiratory Surgery: No Pertinent History GI Surgical History: Hernia Repair Genitourinary Surgical Hx: Kidney Surgery Musculskeletal Surgical Hx: No Pertinent History Male Surgical History: No Pertinent History - Social History Smoking Status: Never smoker Exposure to second hand smoke: No Alcohol: Rarely Drug Use: none - Social Determinants of Health Will the patient participate in the screening: Yes Do you worry about a steady place to live?: No Do you have any problems with any of the following?: No known problems In the past 12 months,have you had to go without utilities?: No Have you or anyone in your house had to go without enough: No Transportation Issues: No Has anyone in your support network made you feel unsafe?: No Does the patient want assistance with any of the above?: No - Physical Exam Vital Signs: Vital Signs - 24 hr Temp Pulse Resp BP BP Pulse Ox 01/01/25 23:58 97.9 F 78 16 126/77 94 L 01/01/25 23:10 97.9 F 78 16 126/77 94 L 01/01/25 22:55 97 01/01/25 22:54 94 L 01/01/25 22:14 88 19 124/80 96 01/01/25 21:10 97 01/01/25 21:00 97 F 90 18 139/96 139/96 99 Results - Labs Lab/Micro Results: Lab Results-Last 24 Hours 01/01/25 01/01/25 01/01/25 Range/Units 21:05 21:05 21:05 WBC 6.7 (4.23-9.07) x10^3/uL RBC 5.27 (4.63-6.08) x10^6/uL Hgb 16.1 (13.7-17.5) g/dL Hct 46.5 (40.1-51.0) % MCV 88.2 (79.0-92.2) fL MCH 30.6 (25.7-32.2) pg MCHC 34.6 (32.3-36.5) g/dL RDW 12.1 (11.6-14.4) % Plt Count 321 (163-337) x10^3/uL MPV 10.1 (9.4-12.4) fL Gran % 45.8 (34.0-67.9) % Immature Gran % (Auto) 0.2 (0.001-0.429) % Nucleat RBC Rel Count 0.0 (0.00-0.2) % Eos # (Auto) 0.08 (0.04-0.54) x10^3/uL Immature Gran # (Auto) 0.01 (0.001-0.031) x10^3u/L Absolute Lymphs (auto) 3.07 (1.32-3.57) x10^3/uL Absolute Monos (auto) 0.40 (0.30-0.82) x10^3/uL Absolute Nucleated RBC 0.00 (0.00-0.012) x10^3u/L Lymphocytes % 46.2 (21.8-53.1) % Monocytes % 6.0 (5.3-12.2) % Eosinophils % 1.2 (0.8-7.0) % Basophils % 0.6 (0.2-1.2) % Absolute Granulocytes 3.05 (1.78-5.38) x10^3/uL Basophils # 0.04 (0.01-0.08) x10^3/uL Sodium 139 (135-145) mmol/L Potassium 3.8 (3.5-5.1) mmol/L Chloride 104 (98-107) mmol/L Carbon Dioxide 28 (22-30) mmol/L Anion Gap 11.5 (5-15) MEQ/L BUN 14 (9-20) mg/dL Creatinine 1.44 H (0.66-1.25) mg/dL Estimated GFR 63.0 ML/MIN Glucose 93 (74-106) mg/dL Calcium 9.7 (8.4-10.2) mg/dL Total Bilirubin 1.70 H (0.2-1.3) mg/dL AST 27 (17-59) U/L ALT 32 (0-50) U/L Alkaline Phosphatase 48 (38-126) U/L Troponin I < 0.012 (0.000-0.033) ng/mL Serum Total Protein 7.6 (6.3-8.2) g/dL Albumin 5.0 (3.5-5.0) g/dL Urine Color (Yellow) Urine Appearance (Clear) Urine pH (4.6-8.0) Ur Specific Cortez (1.005-1.030) Urine Protein (Negative) Urine Glucose (UA) (Negative) mg/dL Urine Ketones (Negative) Urine Blood (Negative) Urine Nitrite (Negative) Urine Bilirubin (Negative) Urine Urobilinogen (0.2) mg/dL Ur Leukocyte Esterase (Negative) U Hyaline Cast (Auto) (0-2) /LPF Urine Microscopic RBC (0-5) /HPF Urine Microscopic WBC (0-5) /HPF Ur Epithelial Cells (None Seen) /HPF Urine Bacteria (None Seen) /HPF Urine Culture Reflexed (NO) Ethyl Alcohol < 10 (0-10) mg/dL 01/01/25 01/02/25 Range/Units 21:11 01:31 WBC (4.23-9.07) x10^3/uL RBC (4.63-6.08) x10^6/uL Hgb (13.7-17.5) g/dL Hct (40.1-51.0) % MCV (79.0-92.2) fL MCH (25.7-32.2) pg MCHC (32.3-36.5) g/dL RDW (11.6-14.4) % Plt Count (163-337) x10^3/uL MPV (9.4-12.4) fL Gran % (34.0-67.9) % Immature Gran % (Auto) (0.001-0.429) % Nucleat RBC Rel Count (0.00-0.2) % Eos # (Auto) (0.04-0.54) x10^3/uL Immature Gran # (Auto) (0.001-0.031) x10^3u/L Absolute Lymphs (auto) (1.32-3.57) x10^3/uL Absolute Monos (auto) (0.30-0.82) x10^3/uL Absolute Nucleated RBC (0.00-0.012) x10^3u/L Lymphocytes % (21.8-53.1) % Monocytes % (5.3-12.2) % Eosinophils % (0.8-7.0) % Basophils % (0.2-1.2) % Absolute Granulocytes (1.78-5.38) x10^3/uL Basophils # (0.01-0.08) x10^3/uL Sodium (135-145) mmol/L Potassium (3.5-5.1) mmol/L Chloride (98-107) mmol/L Carbon Dioxide (22-30) mmol/L Anion Gap (5-15) MEQ/L BUN (9-20) mg/dL Creatinine (0.66-1.25) mg/dL Estimated GFR ML/MIN Glucose (74-106) mg/dL Calcium (8.4-10.2) mg/dL Total Bilirubin (0.2-1.3) mg/dL AST (17-59) U/L ALT (0-50) U/L Alkaline Phosphatase (38-126) U/L Troponin I < 0.012 (0.000-0.033) ng/mL Serum Total Protein (6.3-8.2) g/dL Albumin (3.5-5.0) g/dL Urine Color Yellow (Yellow) Urine Appearance Clear (Clear) Urine pH 8.0 (4.6-8.0) Ur Specific Cortez >=1.030 A (1.005-1.030) Urine Protein Negative (Negative) Urine Glucose (UA) Negative (Negative) mg/dL Urine Ketones Negative (Negative) Urine Blood Negative (Negative) Urine Nitrite Negative (Negative) Urine Bilirubin Negative (Negative) Urine Urobilinogen 0.2 (0.2) mg/dL Ur Leukocyte Esterase Negative (Negative) U Hyaline Cast (Auto) NONE SEEN (0-2) /LPF Urine Microscopic RBC 0-2 (0-5) /HPF Urine Microscopic WBC 0-2 (0-5) /HPF Ur Epithelial Cells None Seen (None Seen) /HPF Urine Bacteria None Seen (None Seen) /HPF Urine Culture Reflexed NO (NO) Ethyl Alcohol (0-10) mg/dL - Radiology Impressions Radiology Exams & Impressions: Radiology Procedures Category Date Time Status CT ANGIOGRAPHY NECK [CT] Stat Exams 01/01/25 21:12 Taken CTA HEAD W AND/OR WO CONTRAST [CT] Stat Exams 01/01/25 21:12 Taken Telemedicine Encounter - Telemedicine Encounter Telemedicine Encounter: "The entirety of this encounter was performed via Telemedicine" This visit was performed using real-time audio and video connection between my location and thepatients locationwith the assistance of a surrogateat the patients location. Written or verbal consent was obtained from the patient/guardian to perform this visit [email or web address]. Any patient questions regarding the telemedicine interaction were answered.
[2025-01-02] MEDS ORDERED: TORAdol 30 mg Injection IV PRN (02:35)
[2025-01-02] MEDS: LIPITOR 40MG PO SCH (02:48)
[2025-01-02 05:40] LABS: BASOPHIL % 0.4 % (0.2-1.2); Basophil (Absolute #) 0.02 x10^3/uL (0.01-0.08); Eosinophil (Absolute #) 0.06 x10^3/uL (0.04-0.54); Hematocrit 41.6 % (40.1-51.0); Hemoglobin 14.2 g/dL (13.7-17.5); IMMATURE GRAN # 0.01 x10^3u/L (0.001-0.031); IMMATURE GRAN % 0.2 % (0.001-0.429); Lymphocyte (Absolute #) 2.27 x10^3/uL (1.32-3.57); Mean Corpuscular Hemoglobin 30.2 pg (25.7-32.2); Mean Corpuscular Hgb Concent. 34.1 g/dL (32.3-36.5); Monocyte (Absolute #) 0.39 x10^3/uL (0.30-0.82); NUCLEATED RBC # 0.00 x10^3u/L (0.00-0.012); NUCLEATED RBC % 0.0 % (0.00-0.2); Platelet Count 249 x10^3/uL (163-337); Red Blood Count 4.70 x10^6/uL (4.63-6.08); White Blood Count 5.2 x10^3/uL (4.23-9.07)
[2025-01-02 05:48] LABS: Calcium 9.0 mg/dL (8.4-10.2); Carbon Dioxide 26.0 mmol/L (22-30); Creatinine 1 1.19 mg/dL (0.66-1.25); EST GLOMERULAR FILTRATION RATE 79.2 ML/MIN; Glucose 103.0 mg/dL (74-106); Potassium 3.9 mmol/L (3.5-5.1); SGOT/AST 23.0 U/L (17-59); SGPT/ALT 25.0 U/L (0-50); Total Protein 6.2 g/dL (6.3-8.2)
[2025-01-02 07:39] VITALS: RESP 16; O2SAT 94
--- NOTE | 2025-01-02 08:46 | XRAY ---
Indication: Slurred speech. Conventional contrast-enhanced CTA neck performed using 80 cc Isovue 370 contrast. 2D sagittal and coronal reformatted images obtained. Additional 3D reformatted images obtained using separate workstation. Comparison: None Normal CTA appearance to the common carotid, carotid bulb, internal carotid, external carotid, and vertebral arteries bilaterally. Visualized soft tissues demonstrates a few cm/subcm cervical and submandibular lymph nodes bilaterally, none pathologically enlarged. Parotid and submandibular glands are bilaterally symmetric. Thyroid gland enhances homogeneously. Supra and infraglottic airway widely patent. Osseous structures intact with minimal C5-C7 degenerative disc disease. Lung apices clear. Impression: Normal CTA neck with contrast exam.
--- NOTE | 2025-01-02 08:50 | XRAY ---
Indication: Slurred speech. Initial CT head performed without contrast. Then conventional contrast-enhanced CTA head performed using 80 cc Isovue 370 contrast. 2D sagittal and coronal reformatted images obtained. Additional 3D reformatted images obtained using separate workstation. Comparison: CT head without contrast June 29, [address]22. CT head without contrast again demonstrates normal brain parenchyma, ventricles, and bony calvarium. Visualized paranasal sinuses and mastoid air cells are clear. CTA head with contrast demonstrates bilaterally symmetric internal carotid arteries without critical stenosis, obstruction, or AV malformation. Normal carotid terminus with normal branching A1 and M1 segments bilaterally. Incidental anatomic variant for origin left posterior cerebral artery. Remaining more distal anterior cerebral and middle cerebral arteries are normal in CTA appearance bilaterally. Posterior circulation demonstrates normal CTA appearance to the basilar, left/right posterior cerebral, and left/right superior cerebellar arteries. Venous sinuses/drainage unremarkable. Brain parenchyma negative for abnormal intra or extra-axial enhancement. Impression: 1. Continued normal CT head without contrast exam. 2. Normal CTA head with contrast exam.
[2025-01-02] MEDS ORDERED: BABY ASPIRIN 81 MG CHEW PO SCH (10:00)
[2025-01-02] MEDS: TOPIRAMATE PO SCH (10:20)
[2025-01-02] MEDS: Zestril 10 MG PO SCH (10:20)
[2025-01-02] MEDS: ECOTRIN 81 MG PO SCH (10:20)
[2025-01-02] MEDS: HEPARIN 5000 UNITS/0.5 ML (HIGH RISK MED) SQ SCH (10:21)
[2025-01-02] MEDS: Protonix 40MG Tablet PO SCH (10:21)
[2025-01-02 11:49] VITALS: BP 123/69; PULSE 84; TEMP 97.6
--- NOTE | 2025-01-02 13:43 | XRAY ---
Indication: Numbness and tingling. Normal CT head, CTA neck, and CTA head exams. Sagittal, coronal, and axial MRI brain performed using T1, T2, FLAIR, diffusion, and ADC sequences. Comparison: None Ventriculosulcal pattern appears symmetric. No acute intracranial hemorrhage, abnormal extra-axial fluid collection, or mass effect. Diffusion images negative for restricted signal. 4th ventricle is midline without hydrocephalus. 7/8 cranial nerve complex bilaterally symmetric. Normal flow void signal within the major intracerebral circulation. Normal appearing craniocervical junction and sella turcica. Paranasal sinuses demonstrates mild mucosal thickening floor right maxillary sinus without fluid leveling. Impression: Negative MRI brain without contrast exam. Incidental right maxillary sinus disease.
[2025-01-02 14:03] LABS: Cholesterol 160.0 mg/dL (50-200); LDL, DIRECT 88.0 mg/dL (30-100); TRIGLYCERIDE 83.0 mg/dL (30-150)
--- NOTE | 2025-01-02 14:37 | PCM.DS ---
Discharge Summary Date of Admission: 01/01/25 22:49 Date of Discharge: 01/02/25 Admitting Physician: ANGEL CRAWFORD MD Consults: Consults on Case 01/02/25 13:37 Consult Neurology ROUTINE Primary Care Provider: [facility] Allergies Allergies No Known Drug Allergies Allergy (Verified 01/01/25 21:21) Hospital Summary - Hospital Course Hospital Course: Mr. Graham is a 39-year-old male with a history of chronic migraines and hypertension who presented to the emergency department with acute neurologic symptoms. He reported that around 11 AM on the day of admission he developed numbness of his nose which gradually spread to involve his entire face and subsequently his left hand. By early evening, his girlfriend noticed that his speech was slurred, prompting ED evaluation. He described difficulty putting together words but noted some baseline word-finding trouble since childhood. At presentation, facial numbness had resolved, with only mild tingling of the fingertips of the left hand persisting. He also endorsed a diffuse headache, rated 4/10, consistent with his baseline chronic migraine pattern. He denied weakness, chest pain, dyspnea, fever, chills, gastrointestinal, or urinary complaints. Initial workup in the emergency department included head CT and CT angiogram of the head and neck, both of which were unremarkable, showing no evidence of acute infarct or vascular abnormality. Laboratory evaluation revealed WBC 6.7, hemoglobin 16.1, platelets 321, sodium 139, potassium 3.8, BUN 14, creatinine 1.44 (baseline 0.9), and troponin <0.012; urinalysis was unremarkable and serum ethanol <10. Neurology was consulted via telestroke and recommended evaluation for transient ischemic attack (TIA) versus complex migraine. MRI brain with and without contrast was subsequently obtained and showed no acute ischemia or other pathology. CTA of the cervical vessels was normal. Echocardiogram was ordered but not yet available at the time of discharge. During hospitalization, the patients neurologic symptoms fully resolved and he returned to baseline speech and sensory function. Neuro checks remained stable throughout. Given the negative MRI, normal vascular imaging, and absence of residual deficits, the event was determined to most likely represent a complex migraine rather than a true TIA or stroke. Lipid panel was normal, and given the absence of vascular pathology or hyperlipidemia, aspirin and statin therapy were not initiated. The patient tolerated oral intake without dysphagia and remained hemodynamically stable. He was deemed appropriate for discharge home with close outpatient follow-up. Discharge Note New Diagnosis: Complex migraine New Medications: none Follow Up: PCP Results pending: Mary Jo I spent 35 minutes [id number] with the patient on the day of discharge performing discharge exam, discussing hospital stay and discharge instructions with patient and caregivers, preparation of discharge records, prescriptions & referral forms and addressing any questions/concerns the patient had as documented above. - Vitals & Intake/Output Vital Signs: Vital Signs Temperature 97.6 F 01/02/25 11:47 Pulse Rate 84 01/02/25 11:47 Respiratory Rate 16 01/02/25 11:47 Blood Pressure 123/69 01/02/25 11:47 O2 Sat by Pulse Oximetry 94 L 01/02/25 11:47 Intake & Output: Intake & Output 12/31/24 01/01/25 01/02/25 01/03/25 11:59 11:59 11:59 11:59 Intake Total 1200 480 Output Total 450 Balance 750 480 Weight 101.3 kg - Lab Result Diagrams: 01/02/25 05:00 01/02/25 05:00 Lab Results-Last 24 Hrs: Lab Results-Last 24 Hours 01/01/25 01/01/25 01/01/25 Range/Units 21:05 21:05 21:05 WBC 6.7 (4.23-9.07) x10^3/uL RBC 5.27 (4.63-6.08) x10^6/uL Hgb 16.1 (13.7-17.5) g/dL Hct 46.5 (40.1-51.0) % MCV 88.2 (79.0-92.2) fL MCH 30.6 (25.7-32.2) pg MCHC 34.6 (32.3-36.5) g/dL RDW 12.1 (11.6-14.4) % Plt Count 321 (163-337) x10^3/uL MPV 10.1 (9.4-12.4) fL Gran % 45.8 (34.0-67.9) % Immature Gran % (Auto) 0.2 (0.001-0.429) % Nucleat RBC Rel Count 0.0 (0.00-0.2) % Eos # (Auto) 0.08 (0.04-0.54) x10^3/uL Immature Gran # (Auto) 0.01 (0.001-0.031) x10^3u/L Absolute Lymphs (auto) 3.07 (1.32-3.57) x10^3/uL Absolute Monos (auto) 0.40 (0.30-0.82) x10^3/uL Absolute Nucleated RBC 0.00 (0.00-0.012) x10^3u/L Lymphocytes % 46.2 (21.8-53.1) % Monocytes % 6.0 (5.3-12.2) % Eosinophils % 1.2 (0.8-7.0) % Basophils % 0.6 (0.2-1.2) % Absolute Granulocytes 3.05 (1.78-5.38) x10^3/uL Basophils # 0.04 (0.01-0.08) x10^3/uL Sodium 139 (135-145) mmol/L Potassium 3.8 (3.5-5.1) mmol/L Chloride 104 (98-107) mmol/L Carbon Dioxide 28 (22-30) mmol/L Anion Gap 11.5 (5-15) MEQ/L BUN 14 (9-20) mg/dL Creatinine 1.44 H (0.66-1.25) mg/dL Estimated GFR 63.0 ML/MIN Glucose 93 (74-106) mg/dL Hemoglobin A1c (4.5-6.0) % Calcium 9.7 (8.4-10.2) mg/dL Total Bilirubin 1.70 H (0.2-1.3) mg/dL AST 27 (17-59) U/L ALT 32 (0-50) U/L Alkaline Phosphatase 48 (38-126) U/L Troponin I < 0.012 (0.000-0.033) ng/mL Serum Total Protein 7.6 (6.3-8.2) g/dL Albumin 5.0 (3.5-5.0) g/dL Triglycerides (30-150) mg/dL Cholesterol (50-200) mg/dL LDL Cholesterol (30-100) mg/dL HDL Cholesterol (40-60) mg/dL Heart Disease Risk Ratio Urine Color (Yellow) Urine Appearance (Clear) Urine pH (4.6-8.0) Ur Specific Coward (1.005-1.030) Urine Protein (Negative) Urine Glucose (UA) (Negative) mg/dL Urine Ketones (Negative) Urine Blood (Negative) Urine Nitrite (Negative) Urine Bilirubin (Negative) Urine Urobilinogen (0.2) mg/dL Ur Leukocyte Esterase (Negative) U Hyaline Cast (Auto) (0-2) /LPF Urine Microscopic RBC (0-5) /HPF Urine Microscopic WBC (0-5) /HPF Ur Epithelial Cells (None Seen) /HPF Urine Bacteria (None Seen) /HPF Urine Culture Reflexed (NO) Ethyl Alcohol < 10 (0-10) mg/dL 01/01/25 01/02/25 01/02/25 Range/Units 21:11 01:31 05:00 WBC 5.2 (4.23-9.07) x10^3/uL RBC 4.70 (4.63-6.08) x10^6/uL Hgb 14.2 (13.7-17.5) g/dL Hct 41.6 (40.1-51.0) % MCV 88.5 (79.0-92.2) fL MCH 30.2 (25.7-32.2) pg MCHC 34.1 (32.3-36.5) g/dL RDW 12.1 (11.6-14.4) % Plt Count 249 (163-337) x10^3/uL MPV 10.0 (9.4-12.4) fL Gran % 47.4 (34.0-67.9) % Immature Gran % (Auto) 0.2 (0.001-0.429) % Nucleat RBC Rel Count 0.0 (0.00-0.2) % Eos # (Auto) 0.06 (0.04-0.54) x10^3/uL Immature Gran # (Auto) 0.01 (0.001-0.031) x10^3u/L Absolute Lymphs (auto) 2.27 (1.32-3.57) x10^3/uL Absolute Monos (auto) 0.39 (0.30-0.82) x10^3/uL Absolute Nucleated RBC 0.00 (0.00-0.012) x10^3u/L Lymphocytes % 43.4 (21.8-53.1) % Monocytes % 7.5 (5.3-12.2) % Eosinophils % 1.1 (0.8-7.0) % Basophils % 0.4 (0.2-1.2) % Absolute Granulocytes 2.48 (1.78-5.38) x10^3/uL Basophils # 0.02 (0.01-0.08) x10^3/uL Sodium (135-145) mmol/L Potassium (3.5-5.1) mmol/L Chloride (98-107) mmol/L Carbon Dioxide (22-30) mmol/L Anion Gap (5-15) MEQ/L BUN (9-20) mg/dL Creatinine (0.66-1.25) mg/dL Estimated GFR ML/MIN Glucose (74-106) mg/dL Hemoglobin A1c (4.5-6.0) % Calcium (8.4-10.2) mg/dL Total Bilirubin (0.2-1.3) mg/dL AST (17-59) U/L ALT (0-50) U/L Alkaline Phosphatase (38-126) U/L Troponin I < 0.012 (0.000-0.033) ng/mL Serum Total Protein (6.3-8.2) g/dL Albumin (3.5-5.0) g/dL Triglycerides (30-150) mg/dL Cholesterol (50-200) mg/dL LDL Cholesterol (30-100) mg/dL HDL Cholesterol (40-60) mg/dL Heart Disease Risk Ratio Urine Color Yellow (Yellow) Urine Appearance Clear (Clear) Urine pH 8.0 (4.6-8.0) Ur Specific Coward >=1.030 A (1.005-1.030) Urine Protein Negative (Negative) Urine Glucose (UA) Negative (Negative) mg/dL Urine Ketones Negative (Negative) Urine Blood Negative (Negative) Urine Nitrite Negative (Negative) Urine Bilirubin Negative (Negative) Urine Urobilinogen 0.2 (0.2) mg/dL Ur Leukocyte Esterase Negative (Negative) U Hyaline Cast (Auto) NONE SEEN (0-2) /LPF Urine Microscopic RBC 0-2 (0-5) /HPF Urine Microscopic WBC 0-2 (0-5) /HPF Ur Epithelial Cells None Seen (None Seen) /HPF Urine Bacteria None Seen (None Seen) /HPF Urine Culture Reflexed NO (NO) Ethyl Alcohol (0-10) mg/dL 01/02/25 01/02/25 01/02/25 Range/Units 05:00 05:00 05:00 WBC (4.23-9.07) x10^3/uL RBC (4.63-6.08) x10^6/uL Hgb (13.7-17.5) g/dL Hct (40.1-51.0) % MCV (79.0-92.2) fL MCH (25.7-32.2) pg MCHC (32.3-36.5) g/dL RDW (11.6-14.4) % Plt Count (163-337) x10^3/uL MPV (9.4-12.4) fL Gran % (34.0-67.9) % Immature Gran % (Auto) (0.001-0.429) % Nucleat RBC Rel Count (0.00-0.2) % Eos # (Auto) (0.04-0.54) x10^3/uL Immature Gran # (Auto) (0.001-0.031) x10^3u/L Absolute Lymphs (auto) (1.32-3.57) x10^3/uL Absolute Monos (auto) (0.30-0.82) x10^3/uL Absolute Nucleated RBC (0.00-0.012) x10^3u/L Lymphocytes % (21.8-53.1) % Monocytes % (5.3-12.2) % Eosinophils % (0.8-7.0) % Basophils % (0.2-1.2) % Absolute Granulocytes (1.78-5.38) x10^3/uL Basophils # (0.01-0.08) x10^3/uL Sodium 138 (135-145) mmol/L Potassium 3.9 (3.5-5.1) mmol/L Chloride 109 H (98-107) mmol/L Carbon Dioxide 26 (22-30) mmol/L Anion Gap 7.6 (5-15) MEQ/L BUN 13 (9-20) mg/dL Creatinine 1.19 (0.66-1.25) mg/dL Estimated GFR 79.2 ML/MIN Glucose 103 (74-106) mg/dL Hemoglobin A1c 5.20 (4.5-6.0) % Calcium 9.0 (8.4-10.2) mg/dL Total Bilirubin 1.50 H (0.2-1.3) mg/dL AST 23 (17-59) U/L ALT 25 (0-50) U/L Alkaline Phosphatase 41 (38-126) U/L Troponin I (0.000-0.033) ng/mL Serum Total Protein 6.2 L (6.3-8.2) g/dL Albumin 4.0 (3.5-5.0) g/dL Triglycerides 83 (30-150) mg/dL Cholesterol 160 (50-200) mg/dL LDL Cholesterol 88 (30-100) mg/dL HDL Cholesterol 45 (40-60) mg/dL Heart Disease Risk Ratio 4.0 Urine Color (Yellow) Urine Appearance (Clear) Urine pH (4.6-8.0) Ur Specific Coward (1.005-1.030) Urine Protein (Negative) Urine Glucose (UA) (Negative) mg/dL Urine Ketones (Negative) Urine Blood (Negative) Urine Nitrite (Negative) Urine Bilirubin (Negative) Urine Urobilinogen (0.2) mg/dL Ur Leukocyte Esterase (Negative) U Hyaline Cast (Auto) (0-2) /LPF Urine Microscopic RBC (0-5) /HPF Urine Microscopic WBC (0-5) /HPF Ur Epithelial Cells (None Seen) /HPF Urine Bacteria (None Seen) /HPF Urine Culture Reflexed (NO) Ethyl Alcohol (0-10) mg/dL 01/02/25 Range/Units 05:03 WBC (4.23-9.07) x10^3/uL RBC (4.63-6.08) x10^6/uL Hgb (13.7-17.5) g/dL Hct (40.1-51.0) % MCV (79.0-92.2) fL MCH (25.7-32.2) pg MCHC (32.3-36.5) g/dL RDW (11.6-14.4) % Plt Count (163-337) x10^3/uL MPV (9.4-12.4) fL Gran % (34.0-67.9) % Immature Gran % (Auto) (0.001-0.429) % Nucleat RBC Rel Count (0.00-0.2) % Eos # (Auto) (0.04-0.54) x10^3/uL Immature Gran # (Auto) (0.001-0.031) x10^3u/L Absolute Lymphs (auto) (1.32-3.57) x10^3/uL Absolute Monos (auto) (0.30-0.82) x10^3/uL Absolute Nucleated RBC (0.00-0.012) x10^3u/L Lymphocytes % (21.8-53.1) % Monocytes % (5.3-12.2) % Eosinophils % (0.8-7.0) % Basophils % (0.2-1.2) % Absolute Granulocytes (1.78-5.38) x10^3/uL Basophils # (0.01-0.08) x10^3/uL Sodium (135-145) mmol/L Potassium (3.5-5.1) mmol/L Chloride (98-107) mmol/L Carbon Dioxide (22-30) mmol/L Anion Gap (5-15) MEQ/L BUN (9-20) mg/dL Creatinine (0.66-1.25) mg/dL Estimated GFR ML/MIN Glucose (74-106) mg/dL Hemoglobin A1c (4.5-6.0) % Calcium (8.4-10.2) mg/dL Total Bilirubin (0.2-1.3) mg/dL AST (17-59) U/L ALT (0-50) U/L Alkaline Phosphatase (38-126) U/L Troponin I < 0.012 (0.000-0.033) ng/mL Serum Total Protein (6.3-8.2) g/dL Albumin (3.5-5.0) g/dL Triglycerides (30-150) mg/dL Cholesterol (50-200) mg/dL LDL Cholesterol (30-100) mg/dL HDL Cholesterol (40-60) mg/dL Heart Disease Risk Ratio Urine Color (Yellow) Urine Appearance (Clear) Urine pH (4.6-8.0) Ur Specific Coward (1.005-1.030) Urine Protein (Negative) Urine Glucose (UA) (Negative) mg/dL Urine Ketones (Negative) Urine Blood (Negative) Urine Nitrite (Negative) Urine Bilirubin (Negative) Urine Urobilinogen (0.2) mg/dL Ur Leukocyte Esterase (Negative) U Hyaline Cast (Auto) (0-2) /LPF Urine Microscopic RBC (0-5) /HPF Urine Microscopic WBC (0-5) /HPF Ur Epithelial Cells (None Seen) /HPF Urine Bacteria (None Seen) /HPF Urine Culture Reflexed (NO) Ethyl Alcohol (0-10) mg/dL - Radiology Exams Ordered Rad Exams-Entire Visit: Radiology Procedures Category Date Time Status CT ANGIOGRAPHY NECK [CT] Stat Exams 01/01/25 21:12 Completed CTA HEAD W AND/OR WO CONTRAST [CT] Stat Exams 01/01/25 21:12 Completed ECHO W/2D AND DOPPLER [US] Routine Exams 01/02/25 02:33 Taken MRI BRAIN W/O CONTRAST [MRI] Routine Exams 01/02/25 07:46 Completed - Procedures and Test Procedures and Tests throughout Hospitalization: Therapy Orders & Screens 01/01/25 23:31 ST Screen per Nursing Assess ONCE Comment: Protocol Order Physician Instructions: Greater than [address] Admission Screening Reason For Exam: Triggered on Admission Diagnosis: TIA CVA/Dysphagia/Aphasia: Yes Cognitive Deficits: No Dehydration/Nutrition Deficit: No Reflux: No Oral-Motor Difficulties: No Pneumonia: No Group Home Resident: No Total Points: 5 01/02/25 02:33 ST Eval & Treat (MD Order) .as ordered Comment: Physician Instructions: Reason For Exam: Evaluate: Slurred speech Treat: slurred speech Reason for Eval: TIA/CVA/Complex migraine, slurred speech Diagnosis: TIA Discharge Exam General Appearance: no apparent distress Neurologic Exam: alert, oriented x 3, cooperative Eye Exam: PERRL Ears, Nose, Throat Exam: normal ENT inspection Neck Exam: normal inspection Respiratory Exam: normal breath sounds, lungs clear Cardiovascular Exam: regular rate/rhythm, normal heart sounds Gastrointestinal/Abdomen Exam: soft, normal bowel sounds Male Genitalia Exam: deferred Rectal Exam: deferred Back Exam: normal inspection Extremity Exam: normal inspection Skin Exam: normal color Final Diagnosis/Problem List - Final Discharge Diagnosis/Problem (1) Facial paresthesia Current Visit: Yes Status: Acute Assessment & Plan: Likely complex migraine vs TIA, MRI negative, CTA head/neck normal) No evidence of infarct or vascular disease. Echocardiogram pending; follow up outpatient for results. No indication for antiplatelet or statin therapy given negative imaging and normal lipid panel. Neurology follow-up arranged for further evaluation and risk assessment. Strict return precautions provided for any recurrent or persistent neurologic deficits. Code(s): R20.2 - PARESTHESIA OF SKIN (2) Chronic migraine Current Visit: Yes Status: Acute Assessment & Plan: Continues to experience near-daily migraines despite Topamax. Continue Topamax as prescribed. Outpatient neurology referral for evaluation of alternate/adjunctive prophylactic therapy Continue home abortive regimen as prescribed. Code(s): TIX0331 - (3) HTN (hypertension) Current Visit: Yes Status: Acute Assessment & Plan: Stable during admission. Continue lisinopril at home dose. Monitor blood pressure at home; follow with primary care. Code(s): I10 - ESSENTIAL (PRIMARY) HYPERTENSION (4) GERD (gastroesophageal reflux disease) Current Visit: Yes Status: Acute Assessment & Plan: Stable during admission. Continue Protonix as prescribed. Code(s): K21.9 - GASTRO-ESOPHAGEAL REFLUX DISEASE WITHOUT ESOPHAGITIS (5) EROS (acute kidney injury) Current Visit: Yes Status: Acute Assessment & Plan: Admission creatinine 1.44 (baseline 0.9), improved to 1.19 at discharge. Likely prerenal in etiology; patient remained hemodynamically stable without nephrotoxic exposures. Encourage oral hydration and avoidance of NSAIDs. Follow repeat basic metabolic panel with primary care within 12 weeks to ensure return to baseline. Code(s): N17.9 - ACUTE KIDNEY FAILURE, UNSPECIFIED - Discharge Discharge Date: 01/02/25 Disposition: Home, Self-Care Condition: Stable Prescriptions: Continue Topiramate 50 mg PO BID Lisinopril 10 mg [Zestril 10 MG] 10 mg PO DAILY PANTOPRAZOLE 40 mg Tablet [Protonix 40MG Tablet] 40 mg PO DAILY Meloxicam 7.5 mg PO DAILY Follow up with: MARC MARCUS [NON-STAFF PHY W/O PRIVILEGES, [facility]] - 01/06/25 9:00 am [facility]OSP[facility] [Primary Care Provider, UNKNOWN]
== END 2025-01-02 15:40 | disposition home or self-care (01) ==
LOC: ED 20:57 → MED SURG 22:49
PROVIDERS: ADMIT Internal Medicine; ATTEND Internal Medicine
DX: R20.2 Paresthesia of skin (principal); G43.909 Migraine, unspecified, not intractable, without status migrainosus; I10 Essential (primary) hypertension; E78.5 Hyperlipidemia, unspecified; K21.9 Gastro-esophageal reflux disease without esophagitis; N17.9 Acute kidney failure, unspecified; Z79.899 Other long term (current) drug therapy
CPT/HCPCS: 36415; 70496; 70498; 70551; 80053; 80061; 81001; 82077; 83036; 83721; 84484; 85025; 93005; 93041; 93306; 94760; 99285; Q3014